=== PATIENT | female | born 1950 | race Caucasian/White ===

== ENCOUNTER 2017-04-24 08:50 | Emergency (ER) | payer MEDICARE, OTHER ==
[2017-04-24 09:18] VITALS: BP 139/65
--- NOTE | 2017-04-24 10:07 | UC ---
Respiratory Complaint HPI - HPI Summary HPI Summary: Pt c/o cough, wheezing, nasal congestion , SOB X 2 weeks. - History of Current Complaint Hx Obtained From: Patient ?: No Onset/Duration: Gradual Onset, Lasting Weeks - 2, Worse Since - onset Timing: Constant Severity Initially: Mild Severity Currently: Moderate Character: Cough: Productive, Sputum Description: - green Aggravating Factors: Deep Breaths, Recumbent Position Associated Signs And Symptoms: Positive: Wheezing, URI, Nasal Congestion, Sinus Discomfort <Shanita Reyes NP - Last Filed: 04/24/17 10:14> <Roselia Adler - Last Filed: 04/24/17 11:17> - History of Current Complaint Chief Complaint: UCRespiratory Stated Complaint: ACHY,COLD SYMP Time Seen by Provider: 04/24/17 09:29 - Allergies/Home Medications Allergies/Adverse Reactions: Allergies Allergy/AdvReac Type Severity Reaction Status Date / Time Chocolate Allergy Shortness Verified 04/24/17 09:18 of Breath Peanut-containing Drug Allergy Shortness Verified 04/24/17 09:18 Products of Breath Home Medications: Home Medications Bp Med Not Propranolol 1 tab PO DAILY 04/24/17 [History Confirmed 04/24/17] C-Pap Tx 1 unit INH QPM 04/24/17 [History Confirmed 04/24/17] PMH/Surg Hx/FS Hx/Imm Hx Previously Healthy: Yes Respiratory History: Asthma - Surgical History Surgical History: Yes Surgery Procedure, Year, and Place: B/L [facility], 2012, [facility]. Cystocele repair. tubal - Family History Known Family History: Positive: Hypertension, Renal Disease - Social History Occupation: Employed Full-time Lives: With Family Alcohol Use: None Substance Use Type: None Smoking Status (MU): Former Smoker Have You Smoked in the Last Year: No - Immunization History Vaccination Up to Date: No <Shanita Reyes NP - Last Filed: 04/24/17 10:14> Review of Systems Constitutional: Fatigue Skin: Negative Eyes: Negative ENT: Sinus Congestion, Sinus Pain/Tenderness Respiratory: Cough Cardiovascular: Negative Gastrointestinal: Negative Genitourinary: Negative Motor: Negative Neurovascular: Negative Musculoskeletal: Negative Neurological: Headache Psychological: Negative Is Patient Immunocompromised?: No All Other Systems Reviewed And Are Negative: Yes <Shanita Reyes NP - Last Filed: 04/24/17 10:14> Physical Exam Triage Information Reviewed: Yes Appearance: Ill-Appearing Vital Signs: Initial Vital Signs Temp 97.2 F 04/24/17 09:12 Pulse 82 04/24/17 09:12 Resp 18 04/24/17 09:12 BP 139/65 04/24/17 09:12 Pulse Ox 97 04/24/17 09:12 Vital Signs Reviewed: Yes Eye Exam: Normal ENT Exam: Other ENT: Positive: Nasal congestion, Sinus tenderness Dental Exam: Normal Dental: Positive: Other: - missing teeth Neck exam: Normal Respiratory Exam: Other Respiratory: Positive: Decreased breath sounds - bases bilateral, Wheezing Cardiovascular Exam: Normal Musculoskeletal Exam: Normal Neurological Exam: Normal Psychological Exam: Normal Skin Exam: Normal <Shanita Reyes NP - Last Filed: 04/24/17 10:14> Vital Signs: Initial Vital Signs Temp 97.2 F 04/24/17 09:12 Pulse 82 04/24/17 09:12 Resp 18 04/24/17 09:12 BP 139/65 04/24/17 09:12 Pulse Ox 97 04/24/17 09:12 <Roselia Adler - Last Filed: 04/24/17 11:17> UC Diagnostic Evaluation - Laboratory O2 Sat by Pulse Oximetry: 97 <Shanita Reyes NP - Last Filed: 04/24/17 10:14> Respiratory Course/Dx - Differential Dx/Diagnosis Differential Diagnosis/HQI/PQRI: Bronchitis, Sinusitis, Other - pneumonia Provider Diagnoses: bronchitis. sinusitis <Shanita Reyes NP - Last Filed: 04/24/17 10:14> Discharge <Shanita Reyes NP - Last Filed: 04/24/17 10:14> <Roselia Adler - Last Filed: 04/24/17 11:17> - Discharge Plan Condition: Stable Disposition: HOME Prescriptions: Albuterol HFA INHALER* [Ventolin HFA Inhaler*] 1 - 2 puff INH Q4H PRN #1 mdi PRN Reason: Sob/Wheezing Amoxicillin/Clavulanate TAB* [Augmentin TAB 500 mg*] 500 mg PO Q12H #20 tab Azithromycin TAB* [Zithromax TAB (Z-BRIGITTE) 250 mg #6 tabs] 2 tab PO .TODAY, THEN 1 DAILY #1 brigitte Benzonatate CAP* [Tessalon 100 MG CAP*] 100 mg PO Q8H PRN #30 cap PRN Reason: Cough methylPREDNISolone TAB* [Medrol TAB*] 4 - 8 mg PO .SEE BRIGITTE #1 brigitte Patient Education Materials: Acute Bronchitis (ED), Wheezing (ED) Referrals: Rosa Carcamo PA [Primary Care Provider] - If Needed Attestation Statement User Type: Provider - I was available for consult. This patient was seen by the IDANIA. The patient was not presented to, seen by, or examined by me. -Leeann <Roselia Adler - Last Filed: 04/24/17 11:17>
== END 2017-04-24 10:19 | disposition home or self-care (01) ==
LOC: UCCORT 08:50
DX: J40 Bronchitis, not specified as acute or chronic (principal); J32.9 Chronic sinusitis, unspecified; Z87.891 Personal history of nicotine dependence
CPT/HCPCS: 99212; G0463

== ENCOUNTER 2017-05-09 12:27 | Emergency (ER) | payer MEDICARE, OTHER ==
[2017-05-09 12:47] VITALS: BP 111/65
[2017-05-09] MEDS ORDERED: Albuterol/Ipratropium NEB.SOL* Albuterol 2.5 MG/Ipratropium 0.5 MG 3 ML INH ONE (12:51)
--- NOTE | 2017-05-09 12:57 | UC ---
Respiratory Complaint HPI - HPI Summary HPI Summary: Returning Bronchospastic Cough, no fevers MDI does not seem to be working that well sx returned after stopping prednisone - History of Current Complaint Chief Complaint: UCRespiratory Stated Complaint: COUGH,CHEST DEE Time Seen by Provider: 05/09/17 12:49 Hx Obtained From: Patient ?: No Onset/Duration: Gradual Onset, Resolved - with prednisone, Worse Since - past 3 days Timing: Constant Severity Initially: Moderate Severity Currently: Moderate Character: Cough: Nonproductive Alleviating Factors: Bronchodilator, Other - Prednisone Associated Signs And Symptoms: Positive: Wheezing - Bronchospastic Cough - Allergies/Home Medications Allergies/Adverse Reactions: Allergies Allergy/AdvReac Type Severity Reaction Status Date / Time Chocolate Allergy Shortness Verified 05/09/17 12:36 of Breath Peanut-containing Drug Allergy Shortness Verified 05/09/17 12:36 Products of Breath Home Medications: Home Medications Lansoprazole [Prevacid] 30 mg PO DAILY 05/09/17 [History Confirmed 05/09/17] Solifenacin Succinate [Vesicare] 5 mg PO DAILY 05/09/17 [History Confirmed 05/09] Spironolactone (NF) [Spironolactone 50 MG (NF)] 50 mg PO DAILY 05/09/17 [ History Confirmed 05/09/17] PMH/Surg Hx/FS Hx/Imm Hx Previously Healthy: No Respiratory History: Asthma GI/ History: Gastroesophageal Reflux Psychological History: Depression - Surgical History Surgical History: Yes Surgery Procedure, Year, and Place: B/L [facility], 2013, [facility] Cystocele repair. tubal - Family History Known Family History: Positive: Hypertension, Renal Disease - Social History Occupation: Retired Lives: With Family Alcohol Use: None Substance Use Type: None Smoking Status (MU): Former Smoker Have You Smoked in the Last Year: No When Did the Patient Quit Smoking/Using Tobacco: 35 YRS AGO - Immunization History Most Recent Influenza Vaccination: FALL 2016 Vaccination Up to Date: No Review of Systems Constitutional: Negative Skin: Negative Eyes: Negative ENT: Negative Respiratory: Cough Cardiovascular: Negative Gastrointestinal: Negative Genitourinary: Negative Motor: Negative Neurovascular: Negative Musculoskeletal: Negative Neurological: Negative Psychological: Negative Is Patient Immunocompromised?: No All Other Systems Reviewed And Are Negative: Yes Physical Exam Triage Information Reviewed: Yes Appearance: Well-Appearing, No Pain Distress, Well-Nourished Vital Signs: Initial Vital Signs Temp 98.6 F 05/09/17 12:40 Pulse 80 05/09/17 12:40 Resp 26 05/09/17 12:40 BP 111/65 05/09/17 12:40 Pulse Ox 97 05/09/17 12:40 Vital Signs Reviewed: Yes Eye Exam: Normal Eyes: Positive: Conjunctiva Clear ENT Exam: Normal ENT: Positive: Normal ENT inspection, Hearing grossly normal, Pharynx normal, TMs normal, Uvula midline. Negative: Nasal congestion, Nasal drainage, Tonsillar swelling, Trismus, Muffled voice, Hoarse voice, Dental tenderness, Sinus tenderness Dental Exam: Normal Neck exam: Normal Neck: Positive: Supple, Nontender, No Lymphadenopathy Respiratory Exam: Normal Respiratory: Positive: Chest non-tender, No respiratory distress, No accessory muscle use, Decreased breath sounds Cardiovascular Exam: Normal Cardiovascular: Positive: RRR, No Murmur, Pulses Normal, Brisk Capillary Refill Musculoskeletal Exam: Normal Musculoskeletal: Positive: Strength Intact, ROM Intact, No Edema Neurological Exam: Normal Neurological: Positive: Alert, Muscle Tone Normal Psychological Exam: Normal Skin Exam: Normal UC Diagnostic Evaluation - Laboratory O2 Sat by Pulse Oximetry: 97 - Radiology Xray Interpretation: No Acute Changes Radiology Interpretation Completed By: ED Physician, Radiologist Re-Evaluation - Re-Evaluation First Eval Change: Improved - Increase air movement after neb-some coughing remains but feeling better Respiratory Course/Dx - Course Course Of Treatment: Prednisone, albuterol Neb and MDI follow with pcp - Differential Dx/Diagnosis Provider Diagnoses: Acute exacerbation of Bronchospasm, Chronic asthma Discharge - Discharge Plan Condition: Stable Disposition: HOME Prescriptions: Albuterol 2.5MG/3ML (0.083%)* [Ventolin 2.5 MG/3 ML NEB.BERNARDINO*] 2.5 mg INH Q4H PRN #1 box PRN Reason: cough/wheeze/sob Albuterol HFA INHALER* [Ventolin HFA Inhaler*] 2 puff INH Q4H PRN #1 mdi PRN Reason: SOB/COUGH/Wheeze predniSONE TAB* [Deltasone TAB*] 20 mg PO DAILY #15 tab Meds/Orders/Equipment: Home Care: Equipment Location: None Selected Home Care: Equipment Facility: [facility], Location: PHARMACY PRESCRIPTIONS Patient Education Materials: How to Use a Metered-Dose Inhaler (ED), How to Use a Nebulizer (ED), Bronchospasm (ED), How to Use a Metered-Dose Inhaler and a Spacer (ED) Referrals: Rosa Carcamo PA [Physician Loaders] - 1 Week
--- NOTE | 2017-05-09 13:11 | RAD ---
INDICATION: Cough x2 weeks COMPARISON: None TECHNIQUE: PA and lateral views of the chest were obtained. FINDINGS: The heart and mediastinum are normal in size and contour. The lungs are grossly clear. There is no evidence of large pleural effusion. Visualized bones are normal for the patient's age. There is no radiographic evidence of free air beneath the diaphragm IMPRESSION: No radiographic evidence of acute cardiopulmonary disease.
[2017-05-09] MEDS ORDERED: predniSONE TAB* 20 MG PO ONE (13:30)
== END 2017-05-09 13:48 | disposition home or self-care (01) ==
LOC: UCCORT 12:27
DX: J45.909 Unspecified asthma, uncomplicated (principal); K21.9 Gastro-esophageal reflux disease without esophagitis; Z91.010 Allergy to peanuts; Z91.018 Allergy to other foods; Z79.899 Other long term (current) drug therapy
CPT/HCPCS: 71020; 99212; A9270-GY; G0463; J7512

== ENCOUNTER 2017-06-08 13:59 | Emergency (ER) | payer MEDICARE, OTHER ==
--- NOTE | 2017-06-08 14:11 | ED ---
Neurological HPI - HPI Summary HPI Summary: 66 yr old female with the complaint of slurred speech. She presents here with last well known time prior to going to bed on Saturday night. She states all day and Saturday and today she has had trouble speaking according to other people. She also states that picking up things with her right hand not very well the past couple of days. She complains of mild left frontal headache. No other complaints. - History of Current Complaint Stated Complaint: SLURRED SPEECH Time Seen by Provider: 06/08/17 14:01 - Allergy/Home Medications Allergies/Adverse Reactions: Allergies Allergy/AdvReac Type Severity Reaction Status Date / Time Chocolate Allergy Shortness Verified 06/08/17 14:06 of Breath Peanut-containing Drug Allergy Shortness Verified 06/08/17 14:06 Products of Breath PMH/Surg Hx/FS Hx/Imm Hx Respiratory History: Reports: Hx Asthma - Surgical History Surgery Procedure, Year, and Place: B/L [facility], [facility], [facility] Cystocele repair. tubal Infectious Disease History: Denies: Hx Clostridium Difficile, Hx Hepatitis, Hx Human Immunodeficiency Virus (HIV), Hx of Known/Suspected MRSA, Hx Shingles, Hx Tuberculosis, Hx Known/ Suspected VRE, Hx Known/Suspected VRSA, History Other Infectious Disease - Family History Known Family History: Positive: Hypertension, Renal Disease - Social History Alcohol Use: None Substance Use Type: Reports: None Smoking Status (MU): Former Smoker Have You Smoked in the Last Year: No Review of Systems Constitutional: Negative Positive: Headache, Slurred Speech All Other Systems Reviewed And Are Negative: Yes Physical Exam Triage Information Reviewed: Yes Vital Signs Reviewed: Yes Appearance: Positive: Well-Appearing, No Pain Distress Skin: Positive: Warm Head/Face: Positive: Normal Head/Face Inspection Eyes: Positive: EOMI ENT: Positive: Normal ENT inspection Neck: Positive: Supple, Nontender Respiratory/Lung Sounds: Positive: Clear to Auscultation, Breath Sounds Present Cardiovascular: Positive: RRR. Negative: Murmur Abdomen Description: Positive: Nontender Musculoskeletal: Positive: Strength/ROM Intact Neurological: Positive: Sensory/Motor Intact - sensory grossly intact, and no pronator drift or focal weakness. She reports her right hand is not well coordinated and trouble picking up things, Alert, Oriented to Person Place, Time , CN Intact II-III, Normal Gait, Slurred Speech, Other - difficulty speaking well. Psychiatric: Positive: Normal - Cristian Coma Scale Best Eye Response: 4 - Spontaneous Best Motor Response: 6 - Obeys Commands Best Verbal Response: 5 - Oriented Coma Scale Total: 15 Course/Dx - Course Course Of Treatment: Case DW with [facility]. Stroke center accepted patientsalinas she is to go to the ER with Dr Espinosa the accepting physician. The patient requested to go to the Stroke center and this is most appropriate even though she has had symptoms for over two days. This could be a bleed, tumor or other PEDIATRIC ONCOLOGY NURSE lesion that would require neurosurgery, neurology eval and extensive work up best done at a Stroke center. - Diagnoses Provider Diagnoses: Stroke Discharge - Discharge Plan Condition: Good Disposition: TRANS HIGHER LVL OF CARE FAC Referrals: Leigh Desai PA [Primary Care Provider] -
[2017-06-08 14:13] VITALS: BP 138/83
== END 2017-06-08 14:30 | disposition short-term general hospital (02) ==
LOC: UCCORT 13:59
DX: I63.9 Cerebral infarction, unspecified (principal); Z91.010 Allergy to peanuts; J45.909 Unspecified asthma, uncomplicated; Z87.891 Personal history of nicotine dependence
CPT/HCPCS: 99213; G0463

== ENCOUNTER 2017-08-02 17:51 | Emergency (ER) | payer MEDICARE, OTHER ==
--- OUTSIDE RECORDS SUMMARY | 2017-08-02 18:15 | XMS REPORT ---
:1950 External Reference #:[id number] Author Organization [facility] [employer] [facility] Address [address] [place] [address] Phone [phone] Care Team Providers Name Role Phone Leigh Desai R.P.A. 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 Primary Care Physician Unavailable Payers Type Date Identification Numbers Payment Provider Subscriber Commercial Policy Number: [id number] [employer] Medicare Advantage Michelle Klein Group Number: [id number] [address] PayID: [id number] [place] [address] Medigap Part B Effective: 2015 Policy Number: [id number] Medicare Michelle Klein Expires: 2015 PayID: [id number] [address] [place] [address] Medigap Part B Effective: 2010 Policy Number: [id number] [facility] Michelle Klein Expires: 2012 PayID: [id number] [address] [address] [place] [address] Medigap Part B Effective: 2013 Policy Number: [id number] Bhardwajkevyn Klein Expires: 2015 PayID: [id number] [address] [place] [address] Problems Date Description Provider Status Onset: 08/30/2011 Kidney stone Attila Snyder M.D. Active Onset: 08/30/2011 Incomplete emptying of bladder Attila Snyder M.D. Active Onset: 02/11/2015 Type 2 diabetes mellitus Active Family History Date Family Member(s) Problem(s) Comments Father Heart Disease Mother Bladder Cancer 2010. Social History Type Date Description Comments Marital Status Patient is single Occupation unknown Cigarette Use Former Cigarette Smoker Cigars Never Smoked Cigars Pipe Never Smoked A Pipe ETOH Use Patient denies alcohol use Daily Caffeine Does Not Consume Caffeine Allergies, Adverse Reactions, Alerts Date Description Reaction Status Severity Comments 12/01/2010 Chocolate respiratory active 12/01/2010 Peanut Oil respiratory active Medications Medication Date Status Form Strength Qnty SIG Indications Ordering Provider Vesicare 04/26/ Active Tablets 10mg 30tab 1 by mouth Claudio, 2015 s every day Aiken M, M.DCharo Singulair / Active Tablets 10mg daily Unknown 0000 Prevacid / Active Capsules 30mg 1 po qd Unknown [address] DR Propranolol HCL / Active Tablets 40mg 2 po qd Unknown 0000 Zoloft / Active Tablets 25mg 14tab 1 po qd Unknown 0000 s Cyclobenzaprine / Active Tablets 10mg tid Unknown HCL 0000 Cymbalta / Active Caps DR 30mg Unknown 0000 Part Meloxicam / Active Tablets 7.5mg daily Unknown 0000 Metformin HCL / Active Tablets 500mg take 1 Unknown 0000 tablet twice a day Pravastatin / Active Tablets 40mg take 1 Unknown Sodium 0000 tablet by mouth at bedtime Propranolol HCL / Active Tablets 80mg Unknown 0000 Niacin ER / Active Tablets ER 500mg take 1 Unknown (Antihyperlipidem 0000 tablet at ) bedtime for 4 weeks then 2 tablets at bedtime Vitamin D3 / Active Tablets 1000Unit take 1 Unknown 0000 tablet once daily Ciprofloxacin HCL 04/11/ Hx Tablets 500mg 6tabs 1 by mouth Claudio, 2015 - twice a Aiken M, 04/14/ day for 3 M.D. 2015 days Gavilyte-G / Hx Solution 236gm Drink Half Unknown 0000 - Rec The 07/21/ Evening 2018 Before And Half The Morning Of Procedure ( 1 Cu Ra Laxative / Hx Tablets DR 5mg Take 4 Unknown 0000 - Tabs At 07/22/ 8PM Day 2018 Before Procedure Ra Magnesium / Hx Solution 1.745GM/3 use as Unknown Citrate 0000 - 0ML directed 2017 Vital Signs Date Vital Result Comment 07/22/2017 Height 62 inches 5'2" Weight 180.00 lb Weight in kg's 81.648 BMI (Body Mass Index) 32.9 kg/m2 BP Systolic 114 mmHg BP Diastolic 82 mmHg Heart Rate 78 /min 07/05/2016 Post Void Residual ml 5 Indication:, Ultrasound aishwarya 03/29/2016 Height 62 inches 5'2" Weight 176.00 lb Weight in kg's 79.834 BMI (Body Mass Index) 32.2 kg/m2 BP Systolic 144 mmHg right wrist audio BP Diastolic 89 mmHg right wrist audio Heart Rate 85 /min Body Temperature 97.8 F 06/07/2014 Height 62 inches 5'2" Weight 200.00 lb Weight in kg's 90.720 BMI (Body Mass Index) 36.6 kg/m2 BP Systolic 137 mmHg right wrist audio BP Diastolic 81 mmHg right wrist audio Heart Rate 71 /min Body Temperature 98.6 F 05/27/2012 Height 62 inches 5'2" Weight 197.00 lb Weight in kg's 89.359 BMI (Body Mass Index) 36.0 kg/m2 BP Systolic 125 mmHg left BP Diastolic 75 mmHg left Heart Rate 65 /min Body Temperature 96.4 F 05/29/2011 BP Systolic 133 mmHg left wrist BP Diastolic 77 mmHg left wrist Heart Rate 77 /min Body Temperature 97.1 F 12/01/2010 BP Systolic 125 mmHg right wrist BP Diastolic 74 mmHg right wrist Heart Rate 69 /min Body Temperature 97.4 F Results Test Date Test Result H/L Range Note 230 Ua Routine 07/05/2016 Ua Glucose Negative Ua Protein 1+ Ua Nitrite Negative Ua Leuko Negative Ua Blood Negative Ua Color yellow Ua Ketones Negative Ua Clarity clear Ua Specifici [place] 1.020 1.003-1.030 Ua PH 5.0 5.0-7.5 Ua Bilirubin Negative Ua Urobilinogen 0.2 E.U./dL 0.0-1.0 230 Ua Routine 04/26/2016 Ua Glucose Negative Ua Protein 2+ Ua Nitrite Negative Ua Leuko Negative Ua Blood Negative Ua Color yellow Ua Ketones Negative Ua Clarity clear Ua Specifici [place] >=1.030 1.003-1.030 Ua PH 6.0 5.0-7.5 Ua Bilirubin Negative Ua Urobilinogen 0.2 E.U./dL 0.0-1.0 #Ua Routine 05/27/2012 Ua Glucose Negative Ua Protein 2+ Ua Nitrite Negative Ua Leuko Negative Ua Blood Negative Ua Color Not Entered Ua Ketones Negative Ua Clarity Not Entered Ua Specific [place] 1.025 Ua PH 5.5 Ua Bilirubin Negative Ua Urobilinogen 0.2 E.U./dL #Ua Routine 05/29/2011 Ua Glucose Negative Ua Protein 1+ Ua Nitrite Negative Ua Leuko Trace Ua Blood Negative Ua Color Not Entered Ua Ketones Negative Ua Clarity Not Entered Ua Specific [place] 1.020 Ua PH 7.0 Ua Bilirubin Negative Ua Urobilinogen 0.2 E.U./dL #Ua Routine 12/01/2010 Ua Glucose Negative Ua Prot/Creat 150 mg/gAbnormal Ua Protein Low Ua Nitrite Negative Ua Leuko Negative Ua Blood Negative Ua Color Not Entered Ua Ketones Negative Ua Clarity Not Entered Ua Specific [place] >=1.030 Ua PH 5.5 Ua Creatinine 300 mg/dL Procedures Date CPT Code Description Status 07/22/2017 85294 Bladder Scan, Post Voiding Residual Urine Completed 04/16/2016 17316 Ultrasound Retro Renal Real Time With Image Limited Completed [facility] 04/11/2016 52957 Urodynamics, Voiding Pressure Studies Intra Abdominal Completed [facility] 04/11/2016 20201 Urodynamics, Electromyography Studies EMG Of Anal Or Completed [facility] 04/11/2016 04042 Urodynamics, Complex Uroflowmetry Eg Calibrated Completed [facility] 04/11/2016 41404 Complex Cystometrogram, With Voiding Pressure Studies Completed [facility] 03/29/2016 56361 Bladder Scan, Post Voiding Residual Urine Completed 02/11/2015 34453 Bladder Scan, Post Voiding Residual Urine Completed 01/31/2015 15625 Ultrasound Retro Renal Real Time With Image Limited Completed [facility] 06/07/2014 87801 Ultrasound Retro Renal Real Time With Image Limited Completed [facility] 05/27/2012 17371 Ultrasound Retro Renal Real Time With Image Completed 05/29/2011 88219 Bladder Scan, Post Voiding Residual Urine Completed 05/28/2011 20376 Ultrasound Retro Renal Real Time With Image Limited Completed [facility] 11/27/2010 68248 Ultrasound Retro Renal Real Time With Image Limited Completed [facility] Encounters Type Date Location Provider CPT E/M Dx Office Visit 07/05/2016 1:15p Paolo/Subha Le NP/[place] 19706 N39.41 Urology R35.0 Office Visit 04/26/2016 1:50p [facility] Attila Snyder, 52640 N39.41 Val R35.0 Office Visit 03/29/2016 9:00a Paolo/[facility]il.M.[facility] Claudio Attila Khalil, 02268 N20.0 M.D. R35.1 N39.41 Office Visit 02/11/2015 10:00a Paolo/[facility] Attila Khalil, 74699 R35.1 M.D. R35.0 N20.0 R39.14 Office Visit 06/07/2014 12:20p Paolo/[facility].M.[facility] Attila Khalil, 97424 592.0 M.D. 788.43 788.41 724.5 Office Visit 05/27/2012 8:40a Paolo/[facility] Claudio Aiken Remi, 04680 592.0 M.D. Office Visit 05/29/2011 10:10a Paolo/Basil.MElis [facility] Attila Snyder, 78974 592.0 M.D. 788.21 Office Visit 12/01/2010 9:00a Paolo/Basil.MCharoPCharo Urology Jeremías, Subha, [employer] [address] 592.0 Plan of Care 07/22/2017 - Joe Menendez, P.A.R39.15 Urgency of urinationComments: Currently symptoms are baseline. Call for his reviewed. We will see her on a when necessary basis.
--- OUTSIDE RECORDS SUMMARY | 2017-08-02 18:16 | XMS REPORT ---
:1950 External Reference #:[id number] Author Organization [facility] 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 Leigh Desai RPAC Primary Care Physician Unavailable Payers Type Date Identification Numbers Payment Provider Subscriber Commercial Policy Number: [id number] [employer] Medicare Michelle Klein PayID: [id number] [address] [place] [address] Medigap Part B Policy Number: [id number] [employer] Michelle Klein PayID: [id number] [address] [place] [address] Problems Date Description Provider Status Onset: 12/27/2014 Essential hypertension Rosa Carcamo PA-C Active Onset: 12/27/2014 Depressive disorder Rosa Carcamo PA-C Active Onset: 12/27/2014 Migraine Rosa Carcamo PA-C Active Onset: 12/27/2014 Kidney stone Rosa Carcamo PA-C Active Note: 92% calcium oxalate 2008 Onset: 12/27/2014 Gastroesophageal reflux disease Rosa Carcamo PA-C Active Onset: 12/27/2014 Asthma without status asthmaticus Rosa Carcamo PA-C Active Onset: 12/27/2014 Degenerative joint disease Rosa Carcamo PA-C Active involving multiple joints Note: spine Onset: 12/27/2014 Obstructive sleep apnea syndrome Rosa Carcamo PA-C Active Note: APAP Onset: 12/27/2014 Hyperlipidemia Rosa Carcamo PA-C Active Onset: 12/27/2014 Obesity Rosa Carcamo PA-C Active Onset: 04/28/2015 Insomnia Rosa Carcamo PA-C Active Onset: 03/28/2016 Screening for malignant neoplasm of Gaston Campos MD Active colon Onset: 07/02/2016 Vitamin D deficiency Rosa Carcamo PA-C Active Onset: 06/01/2017 [facility] Onset: 06/10/2017 Cerebrovascular accident [facility] Active Note: small vessel/ischemic/(R) centrum ovale, 05/2017 Onset: 07/02/2017 Cerebrovascular disease Verna Jade M.D. Active Onset: 07/02/2017 Taking medication Verna Jade M.D. Active Onset: 07/02/2017 Hypothyroidism Verna Jade M.D. Active Onset: 07/02/2017 Dysphagia as a late effect of Verna Jade M.D. Active cerebrovascular accident Onset: 07/02/2017 Dysarthria-clumsy hand syndrome Verna Jade M.D. Active Onset: 07/02/2017 Encounter for screening for Verna Jade M.D. Active nutritional disorder Onset: 07/15/2017 Hypokalemia Verna Jade M.D. Active Onset: 12/27/2014 Type 2 diabetes mellitus Rosa Carcamo PA-C Resolved Resolved: 05/30/2017 Note: since 2013; Jun 2016 A1C 5.4 microalbumin+ August 2014 Due for Diabetic eye exam which is covered by [employer] Onset: 12/27/2014 Female stress incontinence Rosa Carcamo PA-C Resolved Resolved: 06/01/2017 Note: cecile 2008 Family History Date Family Member(s) Problem(s) Comments Father Diabetes Father CAD Mother 83 Onset: (age 57 Years) Mother Colon Cancer malignant tumor Mother Kidney Stones Mother Malignant tumor esophagus Mother Malignant tumor urinary bladder Mother Renal Failure Syndrome First Daughter Sleep apnea First Daughter Fibromyalgia First Brother Sleep apnea First Brother Fibromyalgia First Sister Sleep apnea First Sister Fibromyalgia Social History Type Date Description Comments Marital Status Single Lives With Alone Diet Patient follows no dietary restrictions 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, 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 Work Status Unemployed Abuse Childhood Cigarette Use Quit 1974 ETOH Use Denies alcohol use Recreational Drug Use Denies Drug Use Daily Caffeine Does Not Consume Caffeine Daily Caffeine Patient consumes minimal amounts of caffeine Enjoy Exercising Does not enjoy exercising Tattoo/Piercing Negative For Tattoo Tattoo/Piercing Pierced ears Smoke Alarms Yes Currently Active Patient is currently not sexually active Contraceptive Methods Current methods include tubal ligation Age 1st [place] 20 Years Old # Partners in a Lifetime 2 STD's No STD History Allergies, Adverse Reactions, Alerts Date Description Reaction Status Severity Comments 12/28/2014 Amitriptyline active 02/14/2010 Peanut Allergenic active Extract 12/28/2014 Lyrica active 12/28/2014 Savella active 03/05/2016 Pravastatin active Made her talk funny 07/09/2016 Niaspan flushing, pruritus active Moderate Medications Medication Date Status Form Strength Qnty SIG Indications Ordering Provider Bryce 10 07/15/ Active Tablets ER 10Meq 90tab 1 by mouth E87.6 Andras 2018 s every day Val Jade Speech 07/08/ Active Dg. CVA , Andras Therapy/Swallowin 2018 dysarthria aniya Jade M.D. dysphagia Potassium 07/07/ Active Tablets ER 20Meq 3tabs take 1 Andras Chloride ER 2018 tablet Kalie, daily for M.D. 3 days Vascepa 07/02/ Active Capsules 0.5gm 180ca 1 capsule E78.5 Andras 2018 ps by mouth Kalie, twice a M.D. day Nifedipine ER 06/11/ Active Tablets ER 60mg 1 tab by R20.2 James 2018 24HR mouth Fagan, every M.D. 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 day as needed Cymbalta 04/28/ Active Caps DR 60mg 90cap 1 by mouth F32.8 Emi 2014 Part s daily MD Dung Singulair / Active Tablets 10mg 90tab 1 by mouth Emi 0000 s every day MD Dung Prilosec OTC / Active Tablets DR 20mg 2 by mouth Unknown 0000 every day Vesicare / Active Tablets 10mg 90tab 1 tab by James 0000 s mouth Fagan, every day M.D. Albuterol Sulfate / Active Nebulizer (2.5mg/3M one unit Unknown 0000 L) 0.083% dose via nebulizer every 4 hours as needed Clopidogrel 06/10/ Hx Tablets 75mg 1 by mouth Unknown Bisulfate 2018 - every day, 07/01/ for 3 wks 2018 Nifedipine ER 05/30/ Hx Tablets ER 30mg 30tab 1 tab by R20.2 James 2018 - 24HR s mouth Fagan, 06/11/ every M.D. 2018 night Spironolactone 07/09/ Hx Tablets 25mg 90tab 1 by mouth I10 James 2016 - s every day Fagan, 05/30/ M.D. 2018 Niacin ER 07/09/ Hx Tablets ER 1000mg 90tab 2 by mouth E78.5 James (Antihyperlipidem 2016 - s every Fagan, ic) 07/09/ night at M.D. 2017 bedtime Gemfibrozil 07/09/ Hx Tablets 600mg 180ta take 1 E78.5 James 2017 - bs tablets by Fagan, 01/16/ mouth M.D. 2016 twice daily Vitamin D3 Super 07/09/ Hx Tablets 2000Unit 90tab 1 by mouth E55.9 James Strength 2017 - s every day Fagan, 01/16/ M.D. 2016 Golytely 03/28/ Hx Solution 236gm 4000m drink half Z12.11 2015 Rec l the MD Andres evening before and half the morning of the procedure (1 cup every 10') Dulcolax 03/28/ Hx Tablets DR 5mg 4tabs 4 tablets Z12.2015 taken arnoldo Campos MD 8pm the day before the procedure Magnesium Citrate 03/28/ Hx Solution 1.745GM/3 296ml Z12.11 2015 0ML MD Andres Niaspan 03/14/ Hx Tablets ER 500mg 180ta 1 tabs E78.5 Everett Chau 2016 - bs (500 mg) [facility] 07/09/ by mouth 2017 every night at bedtime x 4 weeks, then 2 tablets by mouth (1000 mg) every night at bedtime Vitamin D 03/14/ Hx Tablets 1000Unit 90tab 1 by mouth E55.9 Everett Chau (Cholecalciferol) 2015 - s every day [facility] 2016 K-Tab 03/07/ Hx Tablets ER 20Meq 90tab 1 PO daily Everett Chau 2015 s [facility] 2016 Suprep Bowel Prep 05/25/ Hx Solution 2.8L drink 16 Z12.11 Junito 2016 oz x1 Vatra, dose, then M.D. drink 32 oz water over 1h evening before procedure; repeat regimen at least 1h before procedure Omeprazole 05/25/ Hx Capsules 40mg 90cap 1 by mouth K21.[address] de la o daily Val Alcantara Golytely 04/28/ Hx Solution 236gm 1jug drink 1/2 Z12.11 Junito 2015 - Rec the jug Maricruz, 05/25/ the day M.D. 2016 before the procedure a/d, then the other half the morning of the procedure a/d Vitamin D 09/06/ Hx Capsules 400Unit 60cap 1 Tab po 733.00 Balwinder 2009 Umair s qd [place], M.D. 2015 Bactrim 09/06/ Hx Tablets 400-80mg 20tab 1 tab po 599.0 Balwinder 2009 bid for [place], 12/27/ days M.D. 2015 Prevacid / Hx Capsules 30mg 90cap 1 by mouth Junito Umair de la o every day Maricruz M.DCharo 2016 Ramipril / Hx Capsules 5mg 30cap 1 po qd Balwinder de la o [place], M.D. 2014 Zoloft / Hx Tablets 50mg 1 po qd Balwinder Worley - [place], M.D. 2015 Vitamin-B12 00/00/ Hx Tablets 1 po qd Balwinder Complex 0000 - Chase, 12/27/ M.D. 2014 Aspirin /00/ Hx Tablets DR 81mg 1 by mouth Unknown 0000 - every day 2014 Albuterol Sulfate / Hx Nebulizer 2 puffs Unknown 0000 - every 4 04/24/ hours prn 2017 Calcium 500 +D 00/00/ Hx Tablets 500-400mg one tab by Unknown 0000 - -Unit mouth 12/27/ twice a 2014 day Cyclobenzaprine / Hx Tablets 10mg 270ta 1 by mouth Junito HCL 0000 - bs every 8 h Vatra, 04/28/ as needed M.D. 2014 for muscle pain Cymbalta / Hx Caps DR 30mg 1 by mouth Unknown 0000 - Part every day 2014 Hydroxyzine HCL 00/ Hx Tablets 25mg 180ta 1-2 tabs Junito 0000 - bs by mouth Vatra, 04/24/ every M.D. 2016 night as needed insomnia Meloxicam 00/ Hx Tablets 7.5mg 1 by mouth Unknown 0000 - every day 04/24/ food 2016 Metformin HCL 00/00/ Hx Tablets 500mg 1 by mouth Unknown 0000 - every day 2015 Pravastatin /00/ Hx Tablets 40mg 90tab 1 by mouth Junito Sodium 0000 - s every Vat, 03/05/ night M.D. 2015 Immunizations CPT Code Status Date Vaccine Lot # [id number] Given 01/16/2017 Influenza Virus Vaccine, Quadrivalent, Slit Virus, Im Use [id number] Given 03/05/2016 Pneumococcal Conjugate Vaccine 13 Valent For [id number] Intramuscular Use 06365 Given 03/05/2016 Influenza Virus Vaccine Split Virus Use For [id number] Individual 3Yr Older [id number] Given 04/28/2015 Influenza Vaccine (Fluzone) Age 3 And Older [id number] Given 09/18/2012 Tdap injection 59946 Given 04/21/2008 Pneumovax Injection 24671 Given 12/11/2002 Tetnus Injection 13989 Given 05/13/1997 Pneumovax Injection 13895 Given 05/13/1992 Tetnus Injection Vital Signs Date Vital Result Comment 07/15/2017 BP Systolic 112 mmHg BP Diastolic 70 mmHg Heart Rate 79 /min Respiratory Rate 14 /min Height 62 inches 5'2" Weight 183.12 lb BMI (Body Mass Index) 33.5 kg/m2 BSA (Body Surface Area) 1.84 m2 Upatoi body weight in kilograms 50 O2 % BldC Oximetry 95 % 07/02/2017 BP Systolic 123 mmHg with her cuff was 179/101 BP Diastolic 61 mmHg with her cuff was 179/101 Heart Rate 99 /min Respiratory Rate 14 /min Height 62 inches 5'2" Weight 180.38 lb BMI (Body Mass Index) 33.0 kg/m2 BSA (Body Surface Area) 1.83 m2 [place] body weight in kilograms 50 O2 % BldC Oximetry 96 % 05/30/2017 BP Systolic Sitting Right Arm 122 mmHg BP Diastolic Sitting Right Arm 80 mmHg Heart Rate 73 /min Height 62 inches 5'2" Weight 184.00 lb BMI (Body Mass Index) 33.7 kg/m2 BSA (Body Surface Area) 1.85 m2 Upatoi body weight in kilograms 50 O2 % BldC Oximetry 98 % ra 01/16/2017 BP Systolic 131 mmHg BP Diastolic 62 mmHg Heart Rate 91 /min Respiratory Rate 14 /min Height 62 inches 5'2" Weight 177.50 lb BMI (Body Mass Index) 32.5 kg/m2 BSA (Body Surface Area) 1.82 m2 Upatoi body weight in kilograms 50 O2 % BldC Oximetry 98 % 07/09/2016 BP Systolic 146 mmHg BP Diastolic 90 mmHg Heart Rate 82 /min Height 62 inches 5'2" Weight 175.00 lb BMI (Body Mass Index) 32.0 kg/m2 BSA (Body Surface Area) 1.81 m2 03/28/2016 BP Systolic Sitting Left Arm 124 mmHg BP Diastolic Sitting Left Arm 84 mmHg Heart Rate 83 /min Respiratory Rate 16 /min Height 62 inches 5'2" Weight 177.00 lb BMI (Body Mass Index) 32.4 kg/m2 BSA (Body Surface Area) 1.81 m2 03/14/2016 BP Systolic 136 mmHg BP Diastolic 85 mmHg Heart Rate 80 /min Height 62 inches 5'2" Weight 177.00 lb BMI (Body Mass Index) 32.4 kg/m2 BSA (Body Surface Area) 1.81 m2 03/05/2016 BP Systolic 141 mmHg BP Diastolic 78 mmHg Heart Rate 79 /min Height 62 inches 5'2" Weight 177.00 lb BMI (Body Mass Index) 32.4 kg/m2 BSA (Body Surface Area) 1.81 m2 05/25/2015 BP Systolic 132 mmHg BP Diastolic 77 mmHg Heart Rate 69 /min Height 62 inches 5'2" Weight 192.00 lb BMI (Body Mass Index) 35.1 kg/m2 BSA (Body Surface Area) 1.88 m2 04/28/2015 BP Systolic 114 mmHg BP Diastolic 71 mmHg Heart Rate 60 /min Height 62 inches 5'2" Weight 189.00 lb BMI (Body Mass Index) 34.6 kg/m2 BSA (Body Surface Area) 1.87 m2 12/28/2014 BP Systolic Sitting Right Arm 138 mmHg BP Diastolic Sitting Right Arm 72 mmHg Respiratory Rate 20 /min Height 62 inches 5'2" Weight 200.00 lb BMI (Body Mass Index) 36.6 kg/m2 BSA (Body Surface Area) 1.91 m2 09/20/2009 Heart Rate 89 /min Respiratory Rate 18 /min Weight 188.00 lb Last Menstrual Period 0 LMP 200009/06/2009 Heart Rate 67 /min Respiratory Rate 20 /min Weight 185.00 lb Last Menstrual Period 0 LMP 200008/30/2009 Heart Rate 87 /min Respiratory Rate 20 /min Weight 183.00 lb Last Menstrual Period 0 Results Test Date Test Result H/L Range Note Homocyst(E)Ine, P/S 07/04/2017 Homocyst(e)ine, P/S 10.5 umol/L 0.0-15.0 1, 2 CBS W/Automated Diff 07/04/2017 White Blood Count 7.7 K/uL 3.1-10.7 1 Red Blood Count 4.52 M/uL 3.90-5.40 1 Hemoglobin 13.0 gm/dL 11.6-15.8 1 Hematocrit 39.2 % 36.0-46.1 1 Mean Cell Volume 86.7 fl 80.9-99.0 1 Mean Corpuscular HGB 28.8 pg 25.9-32.7 1 Mean Corpuscular HGB Conc 33.2 g/dL 30.8-34.3 1 Platelet Count 241 K/uL 155-360 1 Red Cell Distri Width SD 45.1 fl 3-47 1 Red Cell Distri Width %CV 14.5 % High 11.7-14.4 1 Mean Platelet Volume 12.7 fL High 8.9-12.4 1 Neut% 71.8 % 40.4-72.8 1 Lymph % 20.6 % 20.0-42.[address] [facility] % 5.5 % 4.3-13.2 1 Eo% 1.7 % 0.0-6.6 1 Bas% 0.4 % 0.0-1.1 1 Neut# 5.53 K/uL 1.8-7.0 1 Lymph # 1.59 K/uL 1.0-4.[address] # 0.42 K/uL 0.3-0.9 1 Eos # 0.13 K/uL 0.0-0.5 1 Baso # 0.03 K/uL 0.0-0.1 1 Comprehensive Metabolic Panel 07/04/2017 Glucose 113 mg/dL High 74-106 1 BUN 12 mg/dL 7-18 1 Creatinine 0.7 mg/dL 0.6-1.3 1 Glom Filtration Rate, Estimate >60 mL/min >60 1 If >60 mL/min >60 1, 3 BUN/Creat 17.1 ratio 1 Sodium 142 mmol/L 136-145 1 Potassium 3.2 mmol/L Low 3.5-5.1 1 Chloride 106 mmol/L 98-107 1 Carbon Dioxide 31 mmol/L 21-32 1 Anion Gap 5 mEq/L Low 8-16 1 Calcium 9.9 mg/dL 8.5-10.1 1 Total Protein 7.8 g/dL 6.4-8.2 1 Albumin 3.8 g/dL 3.4-5.0 1 Globulin 4.0 g/dL 1.9-4.3 1 Alb/Glob 1.0 ratio 1 Bilirubin,Total 0.2 mg/dL 0.2-1.0 1 Sgot/Ast 20 U/L 15-37 1 SGPT/Alt 47 U/L 12-78 1 Alkaline Phosphatase 207 U/L High 45-117 1 Laboratory test finding 07/04/2017 Vitamin B12 389 pg/mL 193-986 1 Magnesium 2.0 mg/dL 1.8-2.4 1 CK 72 U/L 26-192 1 Vitamin D,25-Hydroxy 28.0 ng/mL Low 30.0-100.0 1, 4 Basic Metabolic Panel 06/10/2017 Hco3 Ser-sCnc 26 mmol/L 22-29 Chloride SerPl-sCnc 104 mmol/L 96-108 Creat SerPl-mCnc 0.68 mg/dL 0.4-1.1 Glucose SerPl-mCnc 119 mg/dL High 65-110 Potassium SerPl-sCnc 4.0 mmol/L 3.3-5.1 Sodium SerPl-sCnc 141 mmol/L 133-145 BUN SerPl-mCnc 13 mg/dL 8-23 Anion Gap3 SerPl-sCnc 11 mmol/L 8-15 Osmolality SerPl Calc 293 mosm/kg 275-300 Creat/Urea nit SerPl 19 Calcium SerPl-mCnc 8.7 mg/dL Low 8.8-10.2 GFR/Bsa pred.non black SerPl MDRD-ArVRat >90 mL/min/1.73m2 >60 GFR/Bsa pred.black SerPl MDRD-ArVRat >90 mL/min/1.73m2 >60 CBC + Diff, Plat Count 06/10/2017 WBC Num Bld Auto 6.2 10*3/uL 4-10 RBC Num Bld Auto 4.54 10*6/uL 4.1-5.3 Hgb Bld-mCnc 12.9 g/dL 11.5-15.5 Hct VFr Bld Auto 38.2 % 36-45 MCV RBC Auto 84.2 fL 80-96 MCH RBC Qn Auto 28.3 pg 27-33 MCHC RBC Auto-mCnc 33.6 g/dL 32.0-36.0 RDW RBC Auto-Rto 14.4 % 11.5-14.5 Platelet Num Bld Auto 234 10*3/uL 150-400 Differential method Bld Automated Diff Neutrophils/leuk NFr Bld Auto 64 % 33-73 Lymphocytes/leuk NFr Bld Auto 26 % 13-52 Monocytes/leuk NFr Bld Auto 7 % 0-11 Eosinophil/leuk NFr Bld Auto 2 % 0-5 Basophils/leuk NFr Bld Auto 1 % 0-2 Neutrophils Num Bld Auto 3.96 10*3/uL 1.8-7.0 Lymphocytes Num Bld Auto 1.65 10*3/uL 1.2-4.0 Monocytes Num Bld Auto 0.43 10*3/uL 0-0.8 Eosinophil Num Bld Auto 0.15 10*3/uL 0-0.5 Basophils Num Bld Auto 0.06 10*3/uL 0-0.2 nRBC/100 WBC Bld Auto-Rto 0 /100{WBCs} 0-0 Basic Metabolic Panel 06/09/2017 Hco3 Ser-sCnc 24 mmol/L 22-29 Chloride SerPl-sCnc 106 mmol/L 96-108 Creat SerPl-mCnc 0.69 mg/dL 0.4-1.1 Glucose SerPl-mCnc 100 mg/dL 65-110 Potassium SerPl-sCnc 4.0 mmol/L 3.3-5.1 Sodium SerPl-sCnc 142 mmol/L 133-145 BUN SerPl-mCnc 11 mg/dL 8-23 Anion Gap3 SerPl-sCnc 12 mmol/L 8-15 Osmolality SerPl Calc 293 mosm/kg 275-300 Creat/Urea nit SerPl 16 Calcium SerPl-mCnc 8.6 mg/dL Low 8.8-10.2 GFR/Bsa pred.non black SerPl MDRD-ArVRat >90 mL/min/1.73m2 >60 GFR/Bsa pred.black SerPl MDRD-ArVRat >90 mL/min/1.73m2 >60 CBC + Diff, Plat Count 06/09/2017 WBC Num Bld Auto 5.3 10*3/uL 4-10 RBC Num Bld Auto 4.48 10*6/uL 4.1-5.3 Hgb Bld-mCnc 13.0 g/dL 11.5-15.5 Hct VFr Bld Auto 38.0 % 36-45 MCV RBC Auto 84.7 fL 80-96 MCH RBC Qn Auto 29.0 pg 27-33 MCHC RBC Auto-mCnc 34.2 g/dL 32.0-36.0 RDW RBC Auto-Rto 14.5 % 11.5-14.5 Platelet Num Bld Auto 219 10*3/uL 150-400 Differential method Bld Manual Diff Neutrophils/leuk NFr Bld Auto 63 % 33-73 Lymphocytes/leuk NFr Bld Auto 28 % 13-52 Monocytes/leuk NFr Bld Auto 7 % 0-11 Eosinophil/leuk NFr Bld Auto 2 % 0-5 Neutrophils Num Bld Auto 3.35 10*3/uL 1.8-7.0 Lymphocytes Num Bld Auto 1.50 10*3/uL 1.2-4.0 Monocytes Num Bld Auto 0.35 10*3/uL 0-0.8 Eosinophil Num Bld Auto 0.10 10*3/uL 0-0.5 Laboratory test finding 06/09/2017 Glucose Poc 110 mg/dL High 70-105 Urinalysis/Urine Culture 06/08/2017 Color Ur Yellow 5 Clarity Ur Clear 5 Sp Gr Ur Refract.auto 1.032 High 1.003-1.030 5 pH Ur Strip.auto 8.0 5.0-8.0 5 Prot Ur Strip.auto-mCnc Negative mg/dL <10 5 Glucose Ur Strip.auto-mCnc Negative mg/dL Negative 5 Ketones Ur Strip.auto-mCnc Negative mg/dL Negative 5 Bilirub Ur Ql Strip.auto Negative Negative 5 Hgb Ur Ql Strip.auto Negative Negative 5 Leukocyte esterase Ur Ql Negative Rommel/uL Negative 5 Strip.auto Nitrite Ur Ql Strip.auto Negative Negative 5 WBC Num/area UrnS Auto <1 /HPF 0-5 5 RBC Num/area UrnS Auto <1 /HPF 0-3 5 Service Cmnt XXX-Imp Urinalysis does <SEE 5, 6 NOTE> Squamous Num/area UrnS Auto <1 /HPF None 5 I-Stat Chem 8 06/08/2017 Sodium Bld-sCnc 145 mmol/L 133-145 Potassium Bld-sCnc 3.3 mmol/L 3.3-5.1 Chloride Bld-sCnc 108 mmol/L 96-108 Co2 Bld-sCnc 25 mmol/L 22-29 Anion Gap Bld-sCnc 12 mmol/L 8-15 Ca-I Bld-sCnc 1.21 mmol/L 1.13-1.32 Glucose Bld-mCnc 82 mg/dL 65-110 BUN Bld-mCnc 13 mg/dL 8-23 Creat Bld-mCnc 0.6 mg/dL 0.4-1.1 Hct VFr Bld 32 % Low 36-45 Hgb Bld Calc-mCnc 10.9 g/dL Low 11.5-15.5 Comprehensive Metabolic Garg 06/08/2017 Albumin SerPl BCG-mCnc 4.1 g/dL 3.4-4.8 7 Bilirub SerPl-mCnc 0.2 mg/dL 0.2-1.0 7 Calcium SerPl-mCnc 9.2 mg/dL 8.8-10.2 7 Chloride SerPl-sCnc 105 mmol/L 96-108 7 Creat SerPl-mCnc 0.74 mg/dL 0.4-1.1 7 Glucose SerPl-mCnc 87 mg/dL 65-110 7 Alp SerPl-cCnc 142 U/L High 35-104 7 Potassium SerPl-sCnc 4.0 mmol/L 3.3-5.1 7 Prot SerPl-mCnc 6.6 g/dL 6.4-8.3 7 Sodium SerPl-sCnc 143 mmol/L 133-145 7 Ast SerPl-cCnc 25 U/L <32 7 BUN SerPl-mCnc 14 mg/dL 8-23 7 Osmolality SerPl Calc 296 mosm/kg 275-300 7 Creat/Urea nit SerPl 19 7 Hco3 Ser-sCnc 28 mmol/L 22-29 7 Alt SerPl-cCnc 29 U/L <31 7 Anion Gap3 SerPl-sCnc 10 mmol/L 8-15 7 Albumin/Glob SerPl 1.6 7 GFR/Bsa pred.non black SerPl MDRD-ArVRat 88 mL/min/1.73m2 >60 7 GFR/Bsa pred.black SerPl MDRD-ArVRat >90 mL/min/1.73m2 >60 7 Laboratory test 06/08/2017 TSH 1.970 u[IU]/mL 0.270-4.200 7 finding Lipid Profile 1 06/08/2017 Cholest SerPl-mCnc 240 mg/dL High <200 7 Trigl SerPl-mCnc 263 mg/dL High <200 7 HDLc SerPl-mCnc 47 mg/dL >40 7 LDLc SerPl Calc-mCnc 140 mg/dL High <100 7 VLDLc SerPl Calc-mCnc 53 mg/dL High 16-42 7 NonHDLc SerPl-mCnc 193 mg/dL High <130 7 Hemoglobin A1c 06/08/2017 Hgb A1c MFr Bld HPLC 5.2 % 4.0-6.0 8, 9 Est. average glucose Bld gHb Est-mCnc 103 mg/dL <126 8 Lipid Profile 1 06/08/2017 Cholest SerPl-mCnc 240 mg/dL High <200 8 Trigl SerPl-mCnc 263 mg/dL High <200 8 HDLc SerPl-mCnc 47 mg/dL >40 8 LDLc SerPl Calc-mCnc 140 mg/dL High <100 8 VLDLc SerPl Calc-mCnc 53 mg/dL High 16-42 8 NonHDLc SerPl-mCnc 193 mg/dL High <130 8 Comprehensive Metabolic Garg 06/08/2017 Albumin SerPl BCG-mCnc 4.1 g/dL 3.4-4.8 8 Bilirub SerPl-mCnc 0.2 mg/dL 0.2-1.0 8 Calcium SerPl-mCnc 9.2 mg/dL 8.8-10.2 8 Chloride SerPl-sCnc 105 mmol/L 96-108 8 Creat SerPl-mCnc 0.74 mg/dL 0.4-1.1 8 Glucose SerPl-mCnc 87 mg/dL 65-110 8 Alp SerPl-cCnc 142 U/L High 35-104 8 Potassium SerPl-sCnc 4.0 mmol/L 3.3-5.1 8 Prot SerPl-mCnc 6.6 g/dL 6.4-8.3 8 Sodium SerPl-sCnc 143 mmol/L 133-145 8 Ast SerPl-cCnc 25 U/L <32 8 BUN SerPl-mCnc 14 mg/dL 8-23 8 Osmolality SerPl Calc 296 mosm/kg 275-300 8 Creat/Urea nit SerPl 19 8 Hco3 Ser-sCnc 28 mmol/L 22-29 8 Alt SerPl-cCnc 29 U/L <31 8 Anion Gap3 SerPl-sCnc 10 mmol/L 8-15 8 Albumin/Glob SerPl 1.6 8 GFR/Bsa pred.non black SerPl MDRD-ArVRat 88 mL/min/1.73m2 >60 8 GFR/Bsa pred.black SerPl MDRD-ArVRat >90 mL/min/1.73m2 >60 8 Laboratory test 06/08/2017 TSH 1.970 u[IU]/mL 0.270-4.200 8 finding Sodium SerPl-sCnc 06/21/2016 Sodium SerPl-sCnc 141 136-145 Serum or plasma 06/21/2016 Serum or plasma 199 High <150 triglyceride triglyceride measurement measurement (mass/vol (mass/volume) Serum or plasma 06/21/2016 Serum or plasma 241 High <200 cholesterol cholesterol measurement measurement (mass/volu (mass/volume) Serum or plasma 06/21/2016 Serum or plasma 63 >40 cholesterol in HDL cholesterol in HDL measurement (ma measurement (mass/volume) Serum or plasma 06/21/2016 Serum or plasma 26.9 Low 30.0-100.0 25-hydroxyvitamin D 25-hydroxyvitamin D measurement (m measurement (mass/volume) Prot SerPl-mCnc 06/21/2016 Prot SerPl-mCnc 7.7 6.4-8.2 Potassium SerPl-sCnc 06/21/2016 Potassium 3.9 3.5-5.1 [facility] SerPl Calc-mCnc 06/21/2016 LDLc SerPl 138 < 100 Calc-nc Hgb A1c MFr Bld 06/21/2016 Hgb A1c MFr Bld 5.4 4.2-6.3 Glucose 06/21/2016 Glucose 94 74-106 [Mass/volume] in [Mass/volume] in Serum or Plasma Serum or Plasma Globulin Ser 06/21/2016 Globulin Ser 3.9 1.9-4.3 Calc-mCnc Calc-mCnc Albumin SerPl-mCnc 06/21/2016 Albumin SerPl-mCnc 3.8 3.4-5.0 Alt SerPl-cCnc 06/21/2016 Alt [facility] 42 12-78 Alp SerPl-cCnc 06/21/2016 Alp SerPl-cCnc 178 High 45-117 Laboratory test 06/21/2016 Thyroid Stim 4.44 uIU/mL High 0.30-4.20 10 finding Hormone Vitamin D,25-Hydroxy 26.9 ng/mL Low 30.0-100.0 10, 11 LDL Cholesterol Profile 06/21/2016 Cholesterol 241 mg/dL High <200 10 , 12 Triglycerides 199 mg/dL High <150 10, 13 HDL Cholesterol 63 mg/dL >40 10, 14 LDL-Cholesterol 138 mg/dL < 100 10, 15 Comprehensive Metabolic Panel 06/21/2016 Glucose 94 mg/dL 74-106 10 BUN 12 mg/dL 7-18 10 Creatinine 0.8 mg/dL 0.6-1.3 10 Glom Filtration Rate, Estimate >60 mL/min >60 10 If >60 mL/min >60 10, 16 BUN/Creat 15.0 ratio 10 Sodium 141 mmol/L 136-145 10 Potassium 3.9 mmol/L 3.5-5.1 10 Chloride 105 mmol/L 98-107 10 Carbon Dioxide 28 mmol/L 21-32 10 Anion Gap 8 mEq/L 8-16 10 Calcium 9.2 mg/dL 8.5-10.1 10 Total Protein 7.7 g/dL 6.4-8.2 10 Albumin 3.8 g/dL 3.4-5.0 10 Globulin 3.9 g/dL 1.9-4.3 10 Alb/Glob 1.0 ratio 10 Bilirubin,Total 0.3 mg/dL 0.2-1.0 10 Sgot/Ast 23 U/L 15-37 10 SGPT/Alt 42 U/L 12-78 10 Alkaline Phosphatase 178 U/L High 45-117 10 Glycohemoglobin A1c 06/21/2016 Glycohemoglobin (A1c) 5.4 % 4.2-6.3 10, 17 eAG 108 mg/dL 10 Albumin/Glob SerPl 06/21/2016 Albumin/Glob SerPl 1.0 Anion Gap SerPl-sCnc 06/21/2016 Anion Gap SerPl-sCnc 8 8-16 Aspartate 06/21/2016 Aspartate 23 15-37 aminotransferase aminotransferase [Enzymatic activity/vol [Enzymatic activity/volume] in Serum or Plasma BUN SerPl-mCnc 06/21/2016 BUN SerPl-mCnc 12 7-18 BUN/Creat SerPl 06/21/2016 BUN/Creat SerPl 15.0 Bilirub SerPl-mCnc 06/21/2016 Bilirub SerPl-mCnc 0.3 0.2-1.0 Blood glucose mean value 06/21/2016 Blood glucose mean value 108 measurement estimated measurement estimated fro from glycated hemoglobin (mass/volume) Co2 SerPl-sCnc 06/21/2016 Co2 SerPl-sCnc 28 21-32 Calcium SerPl-mCnc 06/21/2016 Calcium SerPl-mCnc 9.2 8.5-10.1 Chloride SerPl-sCnc 06/21/2016 Chloride SerPl-sCnc 105 98-107 Creat SerPl-mCnc 06/21/2016 Creat SerPl-mCnc 0.8 0.6-1.3 Basic Metabolic Panel 03/28/2016 Glucose 139 mg/dL High 74-106 18 BUN 12 mg/dL 7-18 18 Creatinine 0.7 mg/dL 0.6-1.3 18 Glom Filtration Rate, Estimate >60 mL/min >60 18 If >60 mL/min >60 18, 19 BUN/Creat 17.1 ratio 18 Sodium 141 mmol/L 136-145 18 Potassium 3.6 mmol/L 3.5-5.1 18 Chloride 104 mmol/L 98-107 18 Carbon Dioxide 27 mmol/L 21-32 18 Anion Gap 10 mEq/L 8-16 18 Calcium 9.2 mg/dL 8.5-10.1 18 Glycohemoglobin A1c 03/07/2016 Glycohemoglobin (A1c) 5.5 % 4.2-6.3 20, 21 eAG 111 mg/dL 20 Comprehensive Metabolic Panel 03/07/2016 Glucose 116 mg/dL High 74-106 20 BUN 12 mg/dL 7-18 20 Creatinine 0.7 mg/dL 0.6-1.3 20 Glom Filtration Rate, Estimate >60 mL/min >60 20 If >60 mL/min >60 20, 22 BUN/Creat 17.1 ratio 20 Sodium 138 mmol/L 136-145 20 Potassium 3.3 mmol/L Low 3.5-5.1 20 Chloride 102 mmol/L 98-107 20 Carbon Dioxide 29 mmol/L 21-32 20 Anion Gap 7 mEq/L Low 8-16 20 Calcium 8.8 mg/dL 8.5-10.1 20 Total Protein 7.2 g/dL 6.4-8.2 20 Albumin 3.5 g/dL 3.4-5.0 20 Globulin 3.7 g/dL 1.9-4.3 20 Alb/Glob 0.9 ratio 20 Bilirubin,Total 0.3 mg/dL 0.2-1.0 20 Sgot/Ast 21 U/L 15-37 20 SGPT/Alt 33 U/L 12-78 20 Alkaline Phosphatase 160 U/L High 45-117 20 LDL Cholesterol Profile 03/07/2016 Cholesterol 234 mg/dL High <200 20 , 23 Triglycerides 199 mg/dL High <150 20, 24 HDL Cholesterol 48 mg/dL >40 20, 25 LDL-Cholesterol 146 mg/dL < 100 20, 26 Laboratory test 03/07/2016 Vitamin D,25-Hydroxy 26.8 ng/mL Low 30.0-100.0 20, 27 finding Thyroid Stim Hormone 4.57 uIU/mL High 0.30-4.20 20 Laboratory test finding 05/11/2015 Esophageal Biopsy See Note 28 Comprehensive Metabolic Panel 05/09/2015 Glucose 92 mg/dL 74-106 BUN 13 mg/dL 7-18 Creatinine 0.7 mg/dL 0.6-1.3 Glom Filtration Rate, Estimate >60 mL/min >60 If >60 mL/min >60 29 BUN/Creat 18.5 ratio Sodium 138 mmol/L 136-145 Potassium 3.5 mmol/L 3.5-5.1 Chloride 105 mmol/L 98-107 Carbon Dioxide 26 mmol/L 21-32 Anion Gap 7 mEq/L Low 8-16 Calcium 9.1 mg/dL 8.5-10.1 Total Protein 8.0 g/dL 6.4-8.2 Albumin 4.1 g/dL 3.4-5.0 Globulin 3.9 g/dL 1.9-4.3 Alb/Glob 1.1 ratio Bilirubin,Total 0.2 mg/dL 0.2-1.0 Sgot/Ast 19 U/L 15-37 SGPT/Alt 36 U/L 12-78 Alkaline Phosphatase 136 U/L High 45-117 Glycohemoglobin A1c 05/09/2015 Glycohemoglobin (A1c) 5.4 % 4.2-6.3 30 eAG 108 mg/dL Laboratory test finding 07/31/2014 CBC See Note 31 CBC W/Automated Diff 07/31/2014 White Blood Count 12.0 K/uL High 3.1-10.7 Red Blood Count 3.04 M/uL Low 3.90-5.40 Hemoglobin 9.1 gm/dL Low 11.6-15.8 Hematocrit 28.7 % Low 36.0-46.1 Mean Cell Volume 94.4 fl 80.9-99.0 Mean Corpuscular HGB 29.9 pg 25.9-32.7 Mean Corpuscular HGB Conc 31.7 g/dL 30.8-34.3 Platelet Count 155 K/uL 155-360 Red Cell Distri Width SD 48.8 fl High 3-47 Red Cell Distri Width %CV 14.6 % High 11.7-14.4 Mean Platelet Volume 11.3 fL 8.9-12.4 Neut# 7.33 K/uL High 1.0-7.0 Lymph # 2.69 K/uL 1.8-7.0 [facility] # 1.51 K/uL High 0.3-0.9 Eos # 0.42 K/uL 0.0-0.5 Baso # 0.07 K/uL 0.0-0.1 Laboratory test finding 09/06/2009 Endometrial Biopsy See Note 32 Laboratory test finding 09/01/2009 Culture If Indicated Comment See Note 33 Urine Culture See Note 34 Urinalysis With Microscopic 09/01/2009 Urine Color YELLOW Yellow Urine Clarity SL CLOUDY Clear Urine Glucose - Dipstick NEGATIVE mg/dL Negative Urine Bilirubin - Dipstick NEGATIVE Negative Urine Ketone NEGATIVE mg/dL Negative Urine Specific [place] 1.025 1.010-1.030 Urine Blood LARGE High Negative Urine PH 6.0 Low 6.5-7.5 Urine Protein - Dipstick TRACE mg/dL Negative Urine Urobilinogen - Dipstick 0.2 E.U./dL 0.2-1.0 Urine Nitrite - Dipstick POSITIVE High Negative Urine Leuk Esterase MODERATE High Negative Urine RBC 20-30 rbc/hpf High 0-7 Urine WBC 10-15 wbc/hpf High 0-7 Urine Bacteria MODERATE NONESEEN High Laboratory test finding 08/30/2009 ThinPrep Pap: See Note 35 Endocervix Smear Osteoparosis Panel 08/30/2009 Thyroid Stim Hormone 1.96 uIU/mL 0.49-4.67 Calcium 9.8 mg/dL 8.5-10.1 Phosphorous 2.5 mg/dL 2.4-4.7 Vitamin D,25-Hydroxy 12.5 ng/mL Low 32.0-100.0 36 Creatinine 0.7 mg/dL 0.5-1.4 PTH,Intact 88 pg/mL High 15-65 37 1 I67.9,Z79.899,Z13.21 2 Performed at: RN - [facility] [address] [id number] Purification Operator: Lashay Bradshaw MD, Phone: [phone] 3 Note: Persistent reduction for 3 months or more in an eGFR <60 mL/min/1.73 m2 defines CKD. Patients with eGFR values >/=60 mL/min/1.73 m2 may also have CKD if evidence of persistent proteinuria is present. The original MDRD equation for estimated GFR is not valid for patients less than 18 years of age. Additional information may be found at www.kdoqi.org. 4 Vitamin D deficiency has been defined by the [place] [employer] and an Endocrine Society practice guideline as a level of serum 25-OH vitamin D less than 20 ng/mL (1,2). The Endocrine Society went on to further define vitamin D insufficiency as a level between 21 and 29 ng/mL (2). 1. IOM ([place] [employer]). 2010. Dietary reference intakes for calcium and D. [place]: The National Academies Press. 2. Ilan MF, Yvon NC, Liam MARTINEZ, et al. Evaluation, treatment, and prevention of vitamin D deficiency: an Endocrine Society clinical practice guideline. JCEM. 2011 Nov; 96(7):1911-30. Performed at: RN - [facility] [address] [id number] Purification Operator: Lashay Bradshaw MD, Phone: [phone] 5 CATHETER TYPE MIDSTREAM URINE, CLEAN CATCH 6 Urinalysis does not suggest infection. Culture not performed 7 TEST ADDED AT UNIT'S PHONED REQUEST 8 TEST ADDED AT UNIT'S PHONED REQUEST USE [id number] (NOTE) <5.7% Average risk of diabetes(ADA) 5.7-6.4% Increased risk of diabetes(ADA) >/=6.5% Diagnostic for diabetes(ADA) 10 E11.42 E78.5 E03.9 E55.9 11 Vitamin D deficiency has been defined by the [place] [employer] and an Endocrine Society practice guideline as a level of serum 25-OH vitamin D less than 20 ng/mL (1,2). The Endocrine Society went on to further define vitamin D insufficiency as a level between 21 and 29 ng/mL (2). 1. IOM ([place] [employer]). 2010. Dietary reference intakes for calcium and D. [place]: The National Academies Press. 2. Ilan MF, Yvon NC, Liam MARTINEZ, et al. Evaluation, treatment, and prevention of vitamin D deficiency: an Endocrine Society clinical practice guideline. JCEM. 2010; 96(7):1911-30. Performed at: RN - [facility] [address] [id number] Purification Operator: Lashay Bradshaw MD, Phone: [phone] 12 Reference Guidelines*: Desirable: ........... < 200 mg/dL Borderline High: ..... 200-239 mg/dL High: ................ >=240 mg/dL * The National Cholesterol Education Program (NCEP) 13 Reference Guidelines*: Normal: ............. < 150 mg/dL Borderline High: .... 150-199 mg/dL High: ............... 200-499 mg/dL Very High: .......... > 500 mg/dL * Source: National Cholesterol Education Program (NCEP) 14 Reference Guidelines*: Low HDL: ..... < 40 mg/dL Normal: ..... 40-60 mg/dL Desirable: ... > 60 mg/dL *The National Cholesterol Education Program(NCEP) 15 Reference Guidelines*: Optimal:........... <100 mg/dL Near Optimal....... 100-129 mg/dL Borderline High.... 130-159 mg/dL High............... 160-189 mg/dL Very High.......... >=190 mg/dL * Source: National Cholesterol Education Program (NCEP) 16 Note: Persistent reduction for 3 months or more in an eGFR <60 mL/min/1.73 m2 defines CKD. Patients with eGFR values >/=60 mL/min/1.73 m2 may also have CKD if evidence of persistent proteinuria is present. The original MDRD equation for estimated GFR is not valid for patients less than 18 years of age. Additional information may be found at www.kdoqi.org. 17 Elevated levels of HbA1c suggest the need for more aggressive treatment of glycemia. The [place] Diabetes Association recommends that a primary goal of therapy should be a HbA1c of <7% and that physicians should re-evaluate the treatment regimen in patients with HbA1c values consistently >8%. 18 E87.6 19 Note: Persistent reduction for 3 months or more in an eGFR <60 mL/min/1.73 m2 defines CKD. Patients with eGFR values >/=60 mL/min/1.73 m2 may also have CKD if evidence of persistent proteinuria is present. The original MDRD equation for estimated GFR is not valid for patients less than 18 years of age. Additional information may be found at www.kdoqi.org. 20 E11.42,F32.89,H93.13 21 Elevated levels of HbA1c suggest the need for more aggressive treatment of glycemia. The [place] Diabetes Association recommends that a primary goal of therapy should be a HbA1c of <7% and that physicians should re-evaluate the treatment regimen in patients with HbA1c values consistently >8%. 22 Note: Persistent reduction for 3 months or more in an eGFR <60 mL/min/1.73 m2 defines CKD. Patients with eGFR values >/=60 mL/min/1.73 m2 may also have CKD if evidence of persistent proteinuria is present. The original MDRD equation for estimated GFR is not valid for patients less than 18 years of age. Additional information may be found at www.kdoqi.org. 23 Reference Guidelines*: Desirable: ........... < 200 mg/dL Borderline High: ..... 200-239 mg/dL High: ................ >=240 mg/dL * The National Cholesterol Education Program (NCEP) 24 Reference Guidelines*: Normal: ............. < 150 mg/dL Borderline High: .... 150-199 mg/dL High: ............... 200-499 mg/dL Very High: .......... > 500 mg/dL * Source: National Cholesterol Education Program (NCEP) 25 Reference Guidelines*: Low HDL: ..... < 40 mg/dL Normal: ..... 40-60 mg/dL Desirable: ... > 60 mg/dL *The National Cholesterol Education Program(NCEP) 26 Reference Guidelines*: Optimal:........... <100 mg/dL Near Optimal....... 100-129 mg/dL Borderline High.... 130-159 mg/dL High............... 160-189 mg/dL Very High.......... >=190 mg/dL * Source: National Cholesterol Education Program (NCEP) 27 Vitamin D deficiency has been defined by the [place] [employer] and an Endocrine Society practice guideline as a level of serum 25-OH vitamin D less than 20 ng/mL (1,2). The Endocrine Society went on to further define vitamin D insufficiency as a level between 21 and 29 ng/mL (2). 1. IOM ([place] [employer]). 2010. Dietary reference intakes for calcium and D. [place]: The National Academies Press. 2. Ilan MF, Yvon NC, Liam MARTINEZ, et al. Evaluation, treatment, and prevention of vitamin D deficiency: an Endocrine Society clinical practice guideline. JCEM. 2010; 96(7):1911-30. Performed at: RN - [facility] [address] [id number] Purification Operator: Lashay Bradshaw MD, Phone: [phone] 28 OPERATION/PROCEDURE Upper endoscopy DIAGNOSIS: "ESOPHAGUS, BIOPSY": - SQUAMOUS AND COLUMNAR MUCOSA WITH CHRONIC INFLAMMATION. - NEGATIVE FOR INTESTINAL METAPLASIA AND DYSPLASIA. EP/winsome 1012 GROSS Received in formalin in an appropriately labeled container with patient's name and accession number. The specimen is designated as "ESOPHAGEAL BIOPSY" and consists of multiple pieces of leija red rubbery tissue in aggregate measuring 0.4 x 0.3 x 0.2 cm. The specimen is submitted entirely in a single cassette. CC/winsome PRE OPERATIVE DIAGNOSIS Screening ca; GERD REVIEW CODE CODE: I Signed Electronically signed Kandi HANNAH MD [id number] 29 Note: Persistent reduction for 3 months or more in an eGFR <60 mL/min/1.73 m2 defines CKD. Patients with eGFR values >/=60 mL/min/1.73 m2 may also have CKD if evidence of persistent proteinuria is present. The original MDRD equation for estimated GFR is not valid for patients less than 18 years of age. Additional information may be found at www.kdoqi.org. 30 Elevated levels of HbA1c suggest the need for more aggressive treatment of glycemia. The [place] Diabetes Association recommends that a primary goal of therapy should be a HbA1c of <7% and that physicians should re-evaluate the treatment regimen in patients with HbA1c values consistently >8%. 31 07/31/14 LAB.YESICA DUPLICATE 32 OPERATION/PROCEDURE Endometrial biopsy DIAGNOSIS: "ENDOMETRIAL BIOPSY": MIXED FRAGMENTS OF CILIATED METAPLASTIC AND INACTIVE ENDOMETRIUM, CONSISTENT WITH PERIMENOPAUSAL CLINICAL DYSFUNCTIONAL UTERINE BLEEDING. [place] 1104 GROSS "ENDOMETRIAL BIOPSY". The specimen is received in an appropriately labeled container. This contains 0.25 mL of pink tissue admixed with mucus. Filtered and submitted in toto within a single cassette. [place] MICROSCOPIC Sections reveal a mixture of ciliated metaplastic and inactive tubular glands in a spindled stroma. The glands are tubular, largely nonstratified, and mitotically inactive. PRE OPERATIVE DIAGNOSIS Post menopausal bleeding; thickened endometrium REVIEW CODE CODE: I PRATIBHA Reyes MD 09/07/09 33 CULTURE TO FOLLOW 34 COLONY COUNT ! >100,000 CFU/ml Organism 1 ! ENTEROCOCCUS GROUP D QUANTITY ! MANY RECOMMENDED THERAPY: ! AMPICILLIN OR AMPICILLIN AND GENTAMICIN. URINARY TRACT INFECTIONS: ! NITROFURANTOIN MAY BE USED FOR UTI'S. NOTE: ! ALL CEPHALOSPORINS ARE INEFFECTIVE. Organism 2 ! URETHRAL TIFFANY 35 CYTOLOGY SCREENER Screened by: NADER Mabry(ASCP) PAP: FINAL REPORT SPECIMEN ADEQUACY: SPECIMEN SATISFACTORY FOR INTERPRETATION AIR-DRYING ARTIFACT AND OBSCURING BLOOD INTERPRETATION: ENDOMETRIAL CELLS IN A WOMAN=>40 YEARS OF AGE ESPECIALLY AFTER MENOPAUSE MAY BE ASSOCIATED WITH BENIGN ENDOMETRIUM, HORMONAL ALTERATIONS AND, LESS COMMONLY, ENDOMETRIAL/ UTERINE ABNORMALITIES NEGATIVE FOR SQUAMOUS INTRAEPITHELIAL LESION OR MALIGNANCY COMMENT: BENIGN REACTIVE SQUAMOUS CELL CHANGES BENIGN CELLULAR CHANGES IN ENDOCERVICAL CELLS ATROPHIC SMEAR PATTERN ENDOMETRIAL SAMPLING SUGGESTED IF CLINICALLY INDICATED THINPREP PREPARED PAP SLIDE # Prepared in the Cytology laboratory from the ThinPrep sample is 1 ThinPrep smear. PAP ACCESSI QUESTIONNAIRE 05/22 PERTINENT CLINICAL HISTORY FOR PAP (HEAD NURSE) CYTOLOGY (Check all that apply): ? Post ? Menopause? LMP date: 2000 If patient had related surgical procedure: Related Therapy: Significant Clinical History: V72.31 DISCLAIMER: The Pap smear is a screening test and not a diagnostic procedure. False negative and false positive results can and do occur for a number of reasons. Regular screening provides an aid in detecting treatable cervical abnormalities, but should not be used as the only means for detecting cervical dysplasia and carcinoma. Signed JUAN CARLOS DUTTA MD 09/02/09 36 Recent studies consider the lower limit of 32.0 ng/mL to be a threshold for optimal health. Seth GLASGOW. J Nutr. 2004;135(2):317-22. Performed at: [facility] [address] [place] [id number] Purification Operator: Pritesh Zarate MD 37 Performed at: [facility] [address] [place] [id number] Purification Operator: Pritesh Zarate MD Procedures Date CPT Code Description Status Comment 06/13/2017 Mammogram Completed 04/18/2016 16635 Colonoscopy Completed 04/18/2016 Colonoscopy Completed Document: 04/18/16 - Op Report - Colonoscopy Document: 04/18/16 - Colon Pics 04/12/2016 Colonoscopy Completed Prior 04/2015, 200805/11/2015 04577 EGD Completed 04/28/2015 67983 Remove Impacted Cerumen Completed 02/16/2010 65017 EKG Interpretation And Report Completed Only 09/15/2009 85691 EKG Interpretation And Report Completed Only 09/06/2009 33932 Endometrial Biopsy Completed 06/28/2008 84095 Colonoscopy Completed Encounters Type Date Location Provider CPT E/M Dx Office Visit 07/15/2017 11:00a Primary Care Office Verna Jade M.D. 52641 I67.9 I63.9 Z79.899 E78.5 I10 E55.9 E87.6 Office Visit 07/02/2017 8:40a Primary Care Office Verna Jade M.D. 02437 I67.9 I63.9 Z79.899 E78.5 I10 Z13.21 E03.9 I69.391 I69.322 Office Visit 05/30/2017 11:15a Primary Care Office Leighlesli Desai [facility] 48848 R20.2 Z12.31 G47.62 Office Visit 01/16/2017 11:30a Primary Care Office Rosa Carcamo 31732 Z04.3 PA-C I10 E11.42 E03.9 Z23 Office Visit 07/09/2016 1:00p Primary Care Office Rosa Carcamo 88535 E11.42 PA-C I10 E78.5 E55.9 E87.6 E03.9 R20.2 M79.7 Office Visit 03/28/2016 2:30[place] [address] Z12.11 K21.0 Office Visit 03/14/2016 9:00a Primary Care Office Rosa Carcamo 94092 E11.42 PA-C I10 E78.5 E55.9 E87.6 E03.9 R20.2 M79.7 Office Visit 03/05/2016 11:30a Primary Care Office Rosa Carcamo 77855 E11.42 PA-C I10 E78.5 Z12.11 K21.9 F32.89 M79.7 H93.13 R20.2 M89.8x8 Z12.31 Z23 Office Visit 05/25/2015 11:30a MERCED Carcamo PA-C 38107 E11.42 I10 E78.5 Z12.11 K21.9 F32.8 M79.7 H93.13 Office Visit 04/28/2015 3:00p MERCED Carcamo PA-C 85083 E11.42 I10 E78.5 Z12.11 K21.9 F32.8 H61.22 Z23 Office Visit 12/28/2014 1:30p MERCED Alcantara M.D. 34078 357.2 278.00 250.00 401.9 272.4 Office Visit 09/20/2009 10:50a director operating room Office Balwinder Chase M.D. 43656 627.1 Office Visit 09/06/2009 8:30a director operating room Office Balwinder Chase M.D. 97807 627.1 Office Visit 08/30/2009 2:00p director operating room Office Balwinder Chase M.D. 18415 V72.31 627.1 Office Visit 07/20/2008 9:45a MERCED Alcantaar M.D. 01501 401.1 715.00 530.81 Office Visit 04/21/2008 11:00a MERCED Alcantara M.D. 27156 729.1 401.1 530.81 V03.82 Office Visit 11/19/2007 11:30a MERCED Alcantara M.D. 84759 787.1 401.1 Plan of Care Future Appointment(s):09/12/2017 10:00 am - Verna Jade M.D. at Primary [facility]7509/27/2017 9:30 am - Leigh Desai [facility] at Primary Care [id number] - Verna Jade M.D.I67.9 Cerebrovascular disease, ptphlqzbblkX91.9 Cerebral infarction, ocarlnhoqtpD20.899 Other long-term (current) drug therapyNew Labs:Comprehensive Metabolic PanelCBS W/Automated DiffE78.5 Hyperlipidemia, unspecifiedNew Labs:HDL CholesterolDirect LDL DionapjkbulWvijxwkhsnqtsW53 Essential (primary) vbposdcmjnwkQ21.9 Vitamin D deficiency, unspecifiedNew Labs:Vitamin D,25-FmjczkdM20.6 HypokalemiaNew Medication:Klor-Con 10 10 MeqNew Labs:MagnesiumFollow up:f/u in early September with fasting labs to be done 1 week prior.
[2017-08-02 18:24] VITALS: BP 107/60
--- NOTE | 2017-08-02 18:59 | UC ---
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 c/o sever pain in the area that is exacerbated by any movement. " -she has h/o kidney stones. history varies. she states that pain did not start until after she fell. But then she says it started a few days ago and may sometimes radiate to anterior abodmen. but no abd pain now. no known hematuria. states that it may feel like a kidney stone pain. no vomiting, no nausea. - History of Current Complaint Stated Complaint: BACK INJURY Time Seen by Provider: 08/02/17 18:44 Pain Intensity: 10 - Allergies/Home Medications Allergies/Adverse Reactions: Allergies Allergy/AdvReac Type Severity Reaction Status Date / Time chocolate flavor Allergy Shortness Verified 08/02/17 18:17 of Breath peanut Allergy Shortness Verified 08/02/17 18:17 of Breath Home Medications: Home Medications Cholecalciferol TAB* [Vitamin D TAB*] 1,000 unit PO DAILY 08/02/17 [History Confirmed 08/02/17] Potassium Chlor TAB* [Klor Con ER TAB 10 MEQ*] 10 meq PO DAILY 08/02/17 [ History Confirmed 08/02/17] PMH/Surg Hx/FS Hx/Imm Hx Previously Healthy: Yes GI/ History: Kidney Stones Psychological History: Anxiety, Depression - Surgical History Surgical History: Yes Surgery Procedure, Year, and Place: B/L TKA, 2012, [facility]. Cystocele repair. tubal - Family History Known Family History: Positive: Hypertension, Renal Disease - Social History Alcohol Use: None Substance Use Type: None Smoking Status (MU): Former Smoker Have You Smoked in the Last Year: No When Did the Patient Quit Smoking/Using Tobacco: 35 YRS AGO - Immunization History Most Recent Influenza Vaccination: FALL 2016 Vaccination Up to Date: No Review of Systems Constitutional: Negative Skin: Negative Eyes: Negative ENT: Negative Respiratory: Negative Cardiovascular: Negative Gastrointestinal: Negative Genitourinary: Negative Motor: Negative Neurovascular: Negative Musculoskeletal: Other: - Rt LBP Neurological: Negative Psychological: Negative Is Patient Immunocompromised?: No All Other Systems Reviewed And Are Negative: Yes Physical Exam Triage Information Reviewed: Yes Appearance: Pain Distress - pain varies, less pain when distracted. Vital Signs: Initial Vital Signs Temp 97.9 F 08/02/17 18:16 Pulse 89 08/02/17 18:16 Resp 18 08/02/17 18:16 BP 107/60 08/02/17 18:16 Pulse Ox 100 08/02/17 18:16 Vital Signs Reviewed: Yes ENT Exam: Normal Neck exam: Normal Neck: Positive: Supple, Nontender Respiratory: Positive: Lungs clear, Normal breath sounds, No respiratory distress Cardiovascular: Positive: RRR Abdomen Description: Positive: Nontender, No Organomegaly, Soft. Negative: CVA Tenderness (R), CVA Tenderness (L) Bowel Sounds: Positive: Present Musculoskeletal: Positive: Other: - tender at right flank at varying areas that are inconstent. not tender when distracted. no bruising or erythema Neurological Exam: Normal Psychological Exam: Normal Skin Exam: Normal Back Pain Course/Dx - Course Course Of Treatment: L/S spine & pelvis films - DJD changes, no frxs - Differential Dx/Diagnosis Differential Diagnosis/HQI/PQRI: Arthritis, Fracture, Strain, Sprain Provider Diagnoses: rt flank strain vs renal colic Discharge - Sign-Out/Discharge Documenting (check all that apply): Discharge - Discharge Plan Condition: Stable Disposition: HOME Patient Education Materials: Musculoskeletal Pain (ED) Referrals: Leigh Desai PA [Primary Care Provider] - 3 Days Additional Instructions: Your xrays showed arthritis but there are no signs of fractures in your pelvis or low back. You should follow up with your doctor who follows you for your kidney stones this week as that may be the cause of your pain. - Billing Disposition and Condition Condition: STABLE Disposition: HOME
--- NOTE | 2017-08-02 19:37 | RAD ---
HISTORY: Low back pain, fall COMPARISONS: None relevant available at the time of dictation VIEWS: 5 , Frontal, lateral, coned-down lateral sacral, and bilateral oblique views of the lumbar spine. FINDINGS: ALIGNMENT: There is a mild levoscoliotic curvature of the spine. VERTEBRAL BODIES: There is multilevel anterolateral marginal osteophyte formation. The vertebral bodies are preserved in height. JOINTS: There is diffuse facet osteoarthritis INTERVERTEBRAL DISCS: There is diffuse loss of intervertebral disc height. SOFT TISSUE: Unremarkable. OTHER: There is osteoarthritis of the hips. IMPRESSION: DEGENERATIVE DISC DISEASE AND OSTEOARTHRITIS. NO ACUTE OSSEOUS INJURY.
--- NOTE | 2017-08-02 19:37 | RAD ---
HISTORY: Right-sided low back pain, fall COMPARISONS: None VIEWS: 1, Single frontal view of the pelvis FINDINGS: BONE DENSITY: Normal. BONES: There is no displaced fracture. JOINTS: There is moderate osteoarthritis of the hips bilaterally. ALIGNMENT: There is no dislocation. SOFT TISSUES: Unremarkable. OTHER FINDINGS: Degenerative changes are noted of the spine. IMPRESSION: OSTEOARTHRITIS. NO ACUTE OSSEOUS INJURY. IF SYMPTOMS PERSIST, RECOMMEND REPEAT IMAGING.
== END 2017-08-02 19:57 | disposition home or self-care (01) ==
LOC: UCCORT 17:51
DX: S39.92XA Unspecified injury of lower back, initial encounter (principal); W22.03XA Walked into furniture, initial encounter; Y93.9 Activity, unspecified; Y92.008 Other place in unspecified non-institutional (private) residence as the place of occurrence of the external cause; Z87.442 Personal history of urinary calculi; F41.9 Anxiety disorder, unspecified; F32.9 Major depressive disorder, single episode, unspecified; Z87.891 Personal history of nicotine dependence
CPT/HCPCS: 72110; 72170; 99211; G0463

== ENCOUNTER 2018-12-03 17:16 | Observation (INO) | payer MEDICARE, OTHER ==
--- NOTE | 2018-12-03 17:30 | ED ---
Syncope/Near Syncope - HPI Summary HPI Summary: A 68 y/o female presents to [facility] with a chief complaint of a near syncopal episode around 15:30 today. The patient felt lightheaded and was eased to the ground. The patient reportedly had some slurred speech before to EMS arrival, had no no slurred speech during EMS evaluation, but has slurred speech currently. Pt has a Hx of 3 TIAs this year in July, August and November. The patient takes Brilinta. She fell and hit her head three days ago and did not seek medical care. She says that currently she feels like she is slurring a little bit. Jes dolan was called at 17:30, [address] Loyola's evaluation. - History Of Current Complaint Time Seen by Provider: 12/03/18 17:24 Hx Obtained From: Patient, EMS Onset/Duration: Sudden Onset, Lasting Hours, Still Present Timing: Intermittent Episode Lasting - intermittent slurred speech Activity At Onset: Unknown Aggravating Factor(s): Nothing Alleviating Factor(s): Nothing Associated Signs And Symptoms: Other - slurred speech - Allergies/Home Medications Allergies/Adverse Reactions: Allergies Allergy/AdvReac Type Severity Reaction Status Date / Time chocolate flavor Allergy Shortness Verified 08/02/17 18:17 of Breath peanut Allergy Shortness Verified 08/02/17 18:17 of Breath Home Medications: Home Medications Atenolol TAB* [Tenormin TAB* 25 MG] 25 mg PO DAILY 12/03/18 [History Confirmed 12/03/18] Atorvastatin* [Lipitor*] 80 mg PO DAILY 12/03/18 [History Confirmed 12/03/18] Cyclobenzaprine (NF) [Cyclobenzaprine 5 MG (NF)] 5 mg PO TID PRN 12/03/18 [ History Confirmed 12/03/18] Dexlansoprazole (NF) [Dexilant (NF)] 60 mg PO DAILY 12/03/18 [History Confirmed 12/03/18] Nortriptyline CAP* [Pamelor CAP*] 10 - 20 mg PO BEDTIME 12/03/18 [History Confirmed 12/03/18] Ticagrelor (NF) [Brilinta 60 MG TAB] 60 mg PO BID 12/03/18 [History Confirmed ] PMH/Surg Hx/FS Hx/Imm Hx Respiratory History: Reports: Hx Asthma Sensory History: Denies: Hx Deafness EENT History: Denies: Hx Deafness Neurological History: Reports: Hx Transient Ischemic Attacks (TIA) - Surgical History Surgery Procedure, Year, and Place: B/L TKA, 2013, [facility]. Cystocele repair. tubal Infectious Disease History: Denies: Hx Clostridium Difficile, Hx Hepatitis, Hx Human Immunodeficiency Virus (HIV), Hx of Known/Suspected MRSA, Hx Shingles, Hx Tuberculosis, Hx Known/ Suspected VRE, Hx Known/Suspected VRSA, History Other Infectious Disease - Family History Known Family History: Positive: Hypertension, Renal Disease - Social History Alcohol Use: None Substance Use Type: Reports: None Smoking Status (MU): Former Smoker Have You Smoked in the Last Year: No Review of Systems Negative: Fever Neurological: Other - positive: near syncopal, lightheaded Positive: Slurred Speech All Other Systems Reviewed And Are Negative: Yes Physical Exam - Summary Physical Exam Summary: GENERAL: Patient is a well-developed and nourished F who is lying comfortable in the stretcher. Patient is not in any acute respiratory distress. HEAD AND FACE: Normocephalic EYES: PERRLA, EOMI x 2. EARS: Hearing grossly intact. MOUTH: Oropharynx within normal limits. NECK: Supple, trachea is midline, no adenopathy, no JVD, no carotid bruit. CHEST: Symmetric, no tenderness at palpation LUNGS: Clear to auscultation bilaterally. No wheezing or crackles. CVS: Regular rate and rhythm, S1 and S2 present, no murmurs or gallops appreciated. ABDOMEN: Soft, non-tender. Bowel sounds are normal. No abnormal abdominal pulsations. EXTREMITIES: Full ROM in all major joints, no edema, no cyanosis or clubbing. NEURO: Alert and oriented x 3. No acute neurological deficits. Speech is normal and follows commands. SKIN: Dry and warm Neuro exam extended: Cranial nerves II-XII grossly intact, no dysmetria finger to nose, nml heel to cherry Triage Information Reviewed: Yes Vital Signs Reviewed: Yes Diagnostics - Laboratory Result Diagrams: 12/03/18 18:05 12/03/18 18:05 Lab Statement: Any lab studies that have been ordered have been reviewed, and results considered in the medical decision making process. - CT Brain CT Interpretation Completed By: Radiologist Summary of CT Findings: 1. No acute intracranial abnormality by CT. 2. Old bilateral basal ganglia infarcts. 3. Mild chronic small vessel slightly disease is likely. ED physician has reviewed this imaging report. - EKG 17:20 Cardiac Rate: Bradycardia - 58 bpm EKG Rhythm: Sinus Bradycardia Summary of EKG Findings: EKG at 17:20 showed sinus bradycardia at 58 bpm, LAD. National Institutes Of Health - NIH Scale Level of Consciousness: Alert/Keenly Responsive Ask Patient the Month and His/Her Age: Both Correct Ask Pt to Open/Close Eyes and License Issuer/Release Non-Paretic Hand: Both Correctly Best Gaze (Only Horizontal Eye Movement): Normal Visual Field Testing: No Visual Loss Facial Paresis-Pt to Smile & Close Eyes or Grimace Symmetry: Normal/Symmetrical Motor Function - Right Arm: No Drift-Holds 10 Seconds Motor Function - Left Arm: No Drift-Holds 10 Seconds Motor Function - Right Leg: No Drift-Holds 10 Seconds Motor Function - Left Leg: No Drift-Holds 10 Seconds Limb Ataxia-Must be out of Proportion to Weakness Present: Absent Sensory (Use Pinprick to Test Arms/Legs/Trunk/Face): Normal Best Language (Describe Picture, Name Items): No Aphasia Dysarthria (Read Several Words): Slurs Some Words Extinction and Inattention: No Abnormality Total Score: 1 Re-Evaluation - Re-Evaluation First Eval Re-Evaluation Time: 17:49 Change: Unchanged Comment: blood glucose dropped to 69 from 91. Course/Dx Course Of Treatment: A 68 y/o female presents to [facility] with a chief complaint of a near syncopal episode around 15:30 today. The patient reportedly had some slurred speech before to EMS arrival, had no no slurred speech during EMS evaluation, but has slurred speech currently. The physical exam revealed a GCS of 15 and an NIH of 1 for slurred speech. In the ED course the patient was given Dextrose IV and Sodium Chloride IV. Blood work and chemistries obtained and are WNL. EKG at 17:20 showed sinus bradycardia at 58 bpm, LAD. Brain CT impression: 1. No acute intracranial abnormality by CT. 2. Old bilateral basal ganglia infarcts. 3. Mild chronic small vessel slightly disease is likely. Discussed case with Dr. Ladd at [place] who recommended admission for observation. Case discussed with hospitalist, Dr. Sam. I discussed results with patient. The patient agrees with this plan. - Diagnoses Provider Diagnoses: Slurred speech - Physician Notifications Discussed Care of Patient With: Tami Mcdowell Time Discussed With Above Provider: 18:18 Instructed by Provider To: Admit As Inpatient Discharge - Sign-Out/Discharge Documenting (check all that apply): Patient Departure - admit Patient Received Moderate/Deep Sedation with Procedure: No - Discharge Plan Condition: Fair Disposition: ADMITTED TO [facility] Referrals: No Primary Care Phys,NOPCP [Medical Doctor] - - Billing Disposition and Condition Condition: FAIR Disposition: Admitted to [facility] - Attestation Statements Document Initiated by Scribe: Yes Documenting Scribe: Gabe Stringer Provider For Whom Scribe is Documenting (Include Credential): Dorian Loyola MD Scribe Attestation: Gabe Alfaro, scribed for Dorian Loyola MD on 12/03/18 at 1832. Scribe Documentation Reviewed: Yes Provider Attestation: The documentation as recorded by the Gabe man accurately reflects the service I personally performed and the decisions made by , Millie Loyola MD Status of Scribe Document: Viewed Consult Consult: At 18:[address] Ladd at [place] who recommended admission for observation.
[2018-12-03] MEDS ORDERED: Dextrose 50% VIAL 50 ml IV ONE (17:47)
[2018-12-03] MEDS ORDERED: Dextrose 50% VIAL 50 ml ONE (17:50)
[2018-12-03] MEDS ORDERED: NS 0.9% 1000 ML** 1,000 ML IV ONE ×3 (17:50→18:50)
[2018-12-03 18:14] LABS: ABS Basophils 0.1 10^3/ul (0-0.2); ABS Eosinophils 0.1 10^3/ul (0-0.6); ABS Lymphocytes 1.3 10^3/ul (1.0-4.8); ABS Monocytes 0.6 10^3/ul (0-0.8); ABS Neutrophils 8.4 10^3/ul (1.5-7.7); Eosinophil % 1.1 %; Hematocrit 38 % (35-47); Hemoglobin 12.8 g/dL (12.0-16.0); Lymphocyte % 12.3 %; Mean Corpuscular HGB Conc 34 g/dL (31-36); Mean Corpuscular Hemoglobin 30 pg (27-31); Mean Corpuscular Volume 89 fL (80-97); Mean Platelet Volume 10.9 fL (7.4-10.4); Platelet Count 213 10^3/uL (150-450); Red Blood Count 4.31 10^6 /uL (3.70-4.87); Red Cell Distribution Width 14 % (10-15); White Blood Count 10.4 10^3/uL (3.5-10.8)
[2018-12-03 18:22] LABS: Activated Partial Thrombo Time 35.5 seconds (26.0-38.0); INR 0.99 (0.82-1.09)
--- OUTSIDE RECORDS SUMMARY | 2018-12-03 18:22 | XMS REPORT | Continuity of Care Document ---
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 treatment regimen in patients with HbA1c values consistently >8%. 30 Vitamin D deficiency has been defined by the [place] [employer] and an Endocrine Society practice guideline as a level of serum 25-OH vitamin D less than 20 ng/mL (1,2). The Endocrine Society went on to further define vitamin D insufficiency as a level between 21 and 29 ng/mL (2). 1. IOM ([place]). 2010. Dietary reference intakes for calcium and D. [place]: The National Academies Press. 2. Ilan MF, Yvon NC, Liam MARTINEZ, et al. Evaluation, treatment, and prevention of vitamin D deficiency: an Endocrine Society clinical practice guideline. JCEM. 2011 Nov; 96(7):1911-30. Performed at: RN - [facility] [address] [id number] Chip Drier: Lashay Bradshaw MD, Phone: [phone] 31 e87.6 32 Note: Persistent reduction for 3 months or more in an eGFR <60 mL/min/1.73 m2 defines CKD. Patients with eGFR values >/=60 mL/min/1.73 m2 may also have CKD if evidence of persistent proteinuria is present. The original MDRD equation for estimated GFR is not valid for patients less than 18 years of age. Additional information may be found at www.kdoqi.org. 33 E11.42,F32.89,H93.13 34 Elevated levels of HbA1c suggest the need for more aggressive treatment of glycemia. The [place] Diabetes [employer] recommends that a primary goal of therapy should be a HbA1c of <7% and that physicians should re-evaluate the treatment regimen in patients with HbA1c values consistently >8%. 35 Note: Persistent reduction for 3 months or more in an eGFR <60 mL/min/1.73 m2 defines CKD. Patients with eGFR values >/=60 mL/min/1.73 m2 may also have CKD if evidence of persistent proteinuria is present. The original MDRD equation for estimated GFR is not valid for patients less than 18 years of age. Additional information may be found at www.kdoqi.org. 36 Reference Guidelines*: Desirable: ........... < 200 mg/dL Borderline High: ..... 200-239 mg/dL High: ................ >=240 mg/dL * The National Cholesterol Education Program (NCEP) 37 Reference Guidelines*: Normal: ............. < 150 mg/dL Borderline High: .... 150-199 mg/dL High: ............... 200-499 mg/dL Very High: .......... > 500 mg/dL * Source: National Cholesterol Education Program (NCEP) 38 Reference Guidelines*: Low HDL: ..... < 40 mg/dL Normal: ..... 40-60 mg/dL Desirable: ... > 60 mg/dL *The National Cholesterol Education Program(NCEP) 39 Reference Guidelines*: Optimal:........... <100 mg/dL Near Optimal....... 100-129 mg/dL Borderline High.... 130-159 mg/dL High............... 160-189 mg/dL Very High.......... >=190 mg/dL * Source: National Cholesterol Education Program (NCEP) 40 Vitamin D deficiency has been defined by the [place] and an Endocrine Society practice guideline as a level of serum 25-OH vitamin D less than 20 ng/mL (1,2). The Endocrine Society went on to further define vitamin D insufficiency as a level between 21 and 29 ng/mL (2). 1. IOM ([place]). 2010. Dietary reference intakes for calcium and D. [place]: The National Academies Press. 2. Ilan MF, Yvon GAGNON, Liam MARTINEZ, et al. Evaluation, treatment, and prevention of vitamin D deficiency: an Endocrine Society clinical practice guideline. JCEM. 2010; 96(7):1911-30. Performed at: RN - [facility] [address] [id number] Chip Drier: Lashay Bradshaw MD, Phone: [phone] 41 OPERATION/PROCEDURE Upper endoscopy DIAGNOSIS: "ESOPHAGUS, BIOPSY": - [...] Signed Electronically signed Kandi HANNAH MD [id number] 42 Elevated levels of HbA1c suggest the need for more aggressive treatment of glycemia. The [place] Diabetes Association recommends that a primary goal of therapy should be a HbA1c of <7% and that physicians should re-evaluate the treatment regimen in patients with HbA1c values consistently >8%. 43 Note: Persistent reduction for 3 months or more in an eGFR <60 mL/min/1.73 m2 defines CKD. Patients with eGFR values >/=60 mL/min/1.73 m2 may also have CKD if evidence of persistent proteinuria is present. The original MDRD equation for estimated GFR is not valid for patients less than 18 years of age. Additional information may be found at www.kdoqi.org. 44 07/31/14 LAB.YES[facility] DUPLICATE 45 OPERATION/PROCEDURE Endometrial biopsy DIAGNOSIS: "ENDOMETRIAL BIOPSY": MIXED FRAGMENTS OF CILIATED METAPLASTIC AND INACTIVE ENDOMETRIUM, CONSISTENT WITH PERIMENOPAUSAL CLINICAL DYSFUNCTIONAL UTERINE BLEEDING. IVAN/winsome 1104 GROSS "ENDOMETRIAL BIOPSY". The specimen is received in an appropriately labeled container. This contains 0.25 mL of pink tissue admixed with mucus. Filtered and submitted in toto within a single cassette. IVAN/winsome MICROSCOPIC Sections reveal a mixture of ciliated metaplastic and inactive tubular glands in a spindled stroma. The glands are tubular, largely nonstratified, and mitotically inactive. PRE OPERATIVE DIAGNOSIS Post menopausal bleeding; thickened endometrium REVIEW CODE CODE: I PRATIBHA Reyes MD 09/07/09 46 CULTURE TO FOLLOW 47 COLONY COUNT ! >100,000 CFU/ml Organism 1 ! ENTEROCOCCUS GROUP D QUANTITY ! MANY RECOMMENDED THERAPY: ! AMPICILLIN OR AMPICILLIN AND GENTAMICIN. URINARY TRACT INFECTIONS: ! NITROFURANTOIN MAY BE USED FOR UTI'S. NOTE: ! ALL CEPHALOSPORINS ARE INEFFECTIVE. Organism 2 ! URETHRAL TIFFANY 48 CYTOLOGY SCREENER Screened by: NADER Mabry(ASCP) PAP: [...] QUESTIONNAIRE 05/22 PERTINENT CLINICAL HISTORY FOR PAP (COMPENSATION EXPERT) CYTOLOGY (Check all that apply): ? Post [...] means for detecting cervical dysplasia and carcinoma. JUAN CARLOS Zamora MD 09/02/09 49 Recent studies consider the lower limit of 32.0 ng/mL to be a threshold for optimal health. Seth GLASGOW. J Nutr. 2004;135(2):317-22. Performed at: RN - [facility] [address] [id number] Chip Drier: Pritesh Zarate MD 50 Performed at: RN - [facility] [address] [id number] Chip Drier: Pritesh Zarate MD Procedures Date Code Description Status 11/21/2018 75456 Radiology, Shoulder: Two Views (Sso) Completed 11/21/2018 61484 Asp./Injection major joint Completed 10/28/2018 02856 [employer]plant[employer] Heart Rhythm Completed Derived Data 10/14/2018 32064 Stress Test Interpre And Report Only Completed 10/14/2018 01001 Stress Test Physician Super Only Completed 10/14/2018 96013 Myocardial Imaging Tomographic Multiple Study AT Rest Completed Or Stress 10/03/2018 20198 Echocardiogram Complete Completed 09/24/2018 36005 [employer] Heart Rhythm Completed Derived Data 09/24/2018 32449 EKG-Tracing And Report Completed 09/22/2018 26166 Eye Exam New Patient Comprehensive Completed 08/11/2018 66837 EKG-Tracing And Report Completed 08/11/2018 95643 [employer] Heart Rhythm Completed Derived Data 04/18/2018 93541 Therapeutic, Prophylactic, Diagnostic Injection Completed Intra-Arterial 06/13/2017 [id number] Mammogram Completed 04/18/2016 51655 Colonoscopy Completed 04/18/2016 [id number] Colonoscopy Completed 04/12/2016 [id number] Colonoscopy Completed 05/11/2015 13400 EGD Completed 04/28/2015 76608 Remove Impacted Cerumen Completed 02/16/2010 15158 EKG Interpretation And Report Only Completed 09/15/2009 00408 EKG Interpretation And Report Only Completed 09/06/2009 05648 Endometrial Biopsy Completed 06/28/2008 15703 Colonoscopy Completed Encounters Type Date Location Provider Dx Diagnosis Office Visit 11/21/2018 Orthopaedic Office Kate Dalton M25.511 Pain in right 1:15p S., RPA shoulder M75.31 Calcific tendinitis of right shoulder Office Visit 10/28/2018 1:20p Cardiology Office Uriel, R06.02 Shortness of Marlyss B., PA breath I63.9 Cerebral infarction, unspecified I10 Essential (primary) hypertension E78.2 Mixed hyperlipidemia R42 Dizziness and giddiness Office Visit 09/24/2018 11:00a Cardiology Office Uriel, I63.9 Cerebral Marlyss B., PA infarction, unspecified 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, unsp R06.02 Shortness of breath E78.2 Mixed hyperlipidemia I10 Essential (primary) hypertension Office Visit 08/11/2018 11:15a Cardiology Office Ashwin Bliss, 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 E78.2 Mixed hyperlipidemia I10 Essential (primary) hypertension 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, unsp Office Visit 07/09/2018 1:30p Orthopaedic Office Estrada Reese, M25.512 Pain in left MD shoulder M19.012 Primary osteoarthritis, left shoulder Office Visit 07/04/2018 9:30a Primary Care Lloyd, 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 Leigh [facility] polyarthropathy W55.01xA Bitten by cat, initial encounter M25.512 Pain in left shoulder F43.20 Adjustment disorder, unspecified Office Visit 04/18/2018 2:30p Primary Care Lloyd, M54.81 Occipital Office Leigh [facility] neuralgia M54.2 Cervicalgia M06.4 Inflammatory polyarthropathy Office Visit 12/30/2017 11:30a Primary Care Lloyd, G47.00 Insomnia, Office Leigh [facility] unspecified M25.50 Pain in unspecified joint I10 Essential (primary) hypertension I63.9 Cerebral infarction, unspecified E78.5 Hyperlipidemia, unspecified Office Visit 10/03/2017 11:00a Primary Care Lloyd, I63.9 Cerebral Office Leigh [facility] infarction, unspecified I10 Essential (primary) hypertension K21.0 Gastro-esophageal reflux disease with esophagitis M54.5 Low back pain M62.830 Muscle spasm of back Office Visit 07/15/2017 11:00a Primary Care Verna Jade, I67.9 Cerebrovascular Office M.D. disease, unspecified I63.9 Cerebral infarction, unspecified Z79.899 Other watermaster (current) drug therapy E78.5 Hyperlipidemia, unspecified I10 Essential (primary) hypertension E55.9 Vitamin D deficiency, unspecified E87.6 Hypokalemia Office Visit 07/02/2017 8:40a Primary Care Verna Jade, I67.9 Cerebrovascular Office M.D. 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 Office Visit 05/30/2017 11:15a Primary Care Cutler, R20.2 Paresthesia of Office Leigh [facility] skin Z12.31 Encntr screen mammogram for malignant neoplasm of breast G47.62 Sleep related leg cramps Office Visit 01/16/2017 11:30a Primary Care Rosa Carcamo Z04.3 Encounter for exam Office REILLY Perez and observation following oth accident I10 Essential (primary) hypertension E11.42 Type 2 diabetes mellitus with diabetic polyneuropathy E03.9 Hypothyroidism, unspecified Z23 Encounter for immunization Office Visit 07/09/2016 1:00p Primary Care Rosa Carcamo E11.42 Type 2 diabetes Office REILLY Perez mellitus with diabetic polyneuropathy I10 Essential (primary) hypertension E78.5 Hyperlipidemia, unspecified E55.9 Vitamin D deficiency, unspecified E87.6 Hypokalemia E03.9 Hypothyroidism, unspecified R20.2 Paresthesia of skin M79.7 Fibromyalgia Office Visit 03/28/2016 2:30p MERCED Campos MD Z12.11 Encounter for screening for malignant neoplasm of colon K21.0 Gastro-esophageal reflux disease with esophagitis Office Visit 03/14/2016 9:00a Primary Care Rosa Carcamo E11.42 Type 2 diabetes Office REILLY Perez mellitus with diabetic polyneuropathy I10 Essential (primary) hypertension E78.5 Hyperlipidemia, unspecified E55.9 Vitamin D deficiency, unspecified E87.6 Hypokalemia E03.9 Hypothyroidism, unspecified R20.2 Paresthesia of skin M79.7 Fibromyalgia Office Visit 03/05/2016 11:30a Primary Care Rosa Carcamo E11.42 Type 2 diabetes Office REILLY Perez mellitus with diabetic polyneuropathy I10 Essential (primary) hypertension E78.5 Hyperlipidemia, unspecified Z12.11 Encounter for screening for malignant neoplasm of colon K21.9 Gastro-esophageal reflux disease without esophagitis F32.89 Other specified depressive episodes M79.7 Fibromyalgia H93.13 Tinnitus, bilateral R20.2 Paresthesia of skin M89.8x8 Other specified disorders of bone, other site Z12.31 Encntr screen mammogram for malignant neoplasm of breast Z23 Encounter for immunization Office Visit 05/25/2015 11:30a Rosa Celaya E11.42 Type 2 diabetes mellitus REILLY Perez with diabetic polyneuropathy I10 Essential (primary) hypertension E78.5 Hyperlipidemia, unspecified Z12.11 Encounter for screening for malignant neoplasm of colon K21.9 Gastro-esophageal reflux disease without esophagitis F32.8 Other depressive episodes M79.7 Fibromyalgia H93.13 Tinnitus, bilateral Office Visit 04/28/2015 3:00p Rosa Celaya E11.42 Type 2 diabetes mellitus REILLY Perez with diabetic polyneuropathy I10 Essential (primary) hypertension E78.5 Hyperlipidemia, unspecified Z12.11 Encounter for screening for malignant neoplasm of colon K21.9 Gastro-esophageal reflux disease without esophagitis F32.8 Other depressive episodes H61.22 Impacted cerumen, left ear Z23 Encounter for immunization Office Visit 12/28/2014 1:30p Junito Shelton MD 357.2 Polyneuropathy In Diabetes 278.00 Obesity Unspec 250.00 Diabetes Mellitus W/O Compl Type II Or Unspec Controlled 401.9 Hypertension Unspec 272.4 Hyperlipidemia Other Unspec Office Visit 09/20/2009 10:50a roll scale worker Office Balwinder Chase 627.1 Postmenopausal M.D. Bleeding Office Visit 09/06/2009 8:30a roll scale worker Office Balwinder Chase 627.1 Postmenopausal M.D. Bleeding Office Visit 08/30/2009 2:00p roll scale worker Office Balwinder Chase V72.31 Routine Supervisory Aide M.D. Examination 627.1 Postmenopausal Bleeding Office Visit 07/20/2008 9:45a Junito Shelton MD 401.1 Hypertension Benign 715.00 Osteoarthrosis Generalized Site Unspec 530.81 Esophageal Reflux Office Visit 04/21/2008 11:00a Junito Shelton MD 729.1 Myalgia & Myositis Unspec 401.1 Hypertension Benign 530.81 Esophageal Reflux V03.82 Streptococcus Pneumoniae Vaccination Spec Other Office Visit 11/19/2007 11:30a Junito Shelton MD 787.1 Heartburn 401.1 Hypertension Benign Plan of Treatment Future Appointment(s):12/22/2018 1:45 pm - Kate Dalton, [facility] at Orthopaedic Mwtrkx9305/01/2019 1:00 pm - Jarett Trevino PA at Cardiology Kaeeqx8409/24/2019 3:30 pm - Srinivasan Rubin MD at Ouod[place]ubquhi96/12/2019 - Kate Dalton, RPACM25.511 Pain in right gwhghomvY16.31 Calcific tendinitis of right shoulderAllComments:She has calcium deposits within the subacromial space consistent with calcific tendinitis. I offered her the option of steroid injection, physical therapy and/or a different anti- inflammatory. She opted for the injection. A separate note was dictated. She does not want to participate in a formal physical therapy program. She is not certain whether the diclofenac is helpful or not. I suggested she stop using it and see how she does. I would like to reevaluate her in four weeks, sooner with anyproblems or concerns. I advised her to use ice for the next few days.
--- OUTSIDE RECORDS SUMMARY | 2018-12-03 18:22 | XMS REPORT | Continuity of Care Document ---
:1950 External Reference #:[id number] Author Name Maurice Khan Care Team Providers Name Role Phone Leigh Desai RPA Primary Care Physician Unavailable Payers Date Identification Numbers Payment Provider Subscriber Effective: 2018 Policy Number: [id number] [employer] Michelle Klein PayID: [id number] [address] [place] [address] Advance Directives Type Date Description Status Comment Other Directive 07/22/2018 Health Care Proxy Current and Verified ALTERNATE --- RUBEN SUMNER,[address] [facility] [address] [place] [address] Problems Active Problems Provider Date Cerebrovascular accident Leigh Desai, PA Onset: 07/29/2018 Note: 05/2017, 07/2018, 08/2018 Essential hypertension Leigh Desai, PA Onset: 07/29/2018 Obstructive sleep apnea syndrome Leigh Desai, PA Onset: 07/29/2018 Gastroesophageal reflux disease Leigh Desai, PA Onset: 07/29/2018 Hyperlipidemia Leigh Desai, PA Onset: 07/29/2018 Arthroplasty of knee Leigh Desai, PA Onset: 07/29/2018 Note: bilateral 2013 Kidney stone Leigh Desai, PA Onset: 07/29/2018 Note: 2014 Degenerative joint disease involving multiple Leigh Desai, PA Onset: joints Note: hips, lumbar spine Chronic low back pain Leigh Desai, PA Onset: 07/29/2018 Note: DDD/DJD Inflammatory polyarthropathy Leigh Desai, PA Onset: 07/29/2018 Fibromyalgia Leigh Desai, PA Onset: 07/29/2018 Note: duloxetine Dysthymia Leigh Desai, PA Onset: 07/29/2018 Note: duloxetine Food allergy Leigh Desai, PA Onset: 07/29/2018 Note: peanuts, chocolate, nuts Multinodular goiter Leigh Desai, PA Onset: 08/11/2018 Bilateral age-related nuclear cataracts Leigh Desai, PA Onset: 2018 Dry eyes Leigh Desai, PA Onset: 09/30/2018 Calcific tendinitis of shoulder Leigh Desai, PA Onset: 11/24/2018 Note: right Family History Date Family Member(s) Observation Comments Father Heart Disease Father Diabetes Father CAD Mother Heart Disease Mother Diabetes Mother Colon Cancer Age 57yrs old Malignant tumor Mother Kidney Stones,Malignant tumor bladder,Renal Failure Syndrome esophagus,Malignant tumor urinary Social History Type Date Description Comments Sex Unknown Lives With Alone Diet Follows no dietary restrictions 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, 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 [employer] 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 Tobacco Use Start: Unknown Quit ~1974 ETOH Use Denies alcohol use Tobacco Use Start: Unknown End: Patient is a former smoker Quit 1973 Unknown Smoking Status Reviewed: 12/02/18 Patient is a former smoker Quit 1973 Exercise Type/Frequency Does not exercise Allergies, Adverse Reactions, Alerts Active Allergies Reaction Severity Comments Date Peanut Oil shortness of breath 07/29/2018 Chocolate Allergenic Extract shortness of breath 07/29/2018 Numb Nuts shortness of breath 07/29/2018 Medications Active Medications SIG Qnty Indications Ordering Date Provider Cyclobenzaprine HCL 1 by mouth three 270tabs Russ 10/30/2018 10mg times a day as Eagle, Tablets needed for muscle spasm Dexilant take 1 capsule by 90caps Russ 09/08/[address] mouth once daily MD Fco Brilinta 1 by mouth twice a Unknown 08/31/2018 60mg Tablets day per Shreya Casas MD Hydrocortisone Thin layer to arm 28.350gm L30.9 07/29/2018 2.5% and neck rash tid Fco Ointment Atenolol take 1 tablet by 90tabs I10 Russ 07/29/2018 25mg Tablets mouth once daily MD Fco Nortriptyline HCL take 1 to 2 Russ 07/29/2018 10mg capsules by mouth Eagle, Capsules at bedtime for headache Montelukast Sodium take 1 tablet by 90tabs Russ 07/29/2018 10mg mouth once daily Eagle, Tablets Duloxetine HCL take 1 capsule by 90caps Russ 07/29/2018 60mg Caps mouth once daily Eagle, DR Part Atorvastatin Calcium 1 by mouth every 90tabs Russ 07/29/2018 80mg day Eagle, Tablets Albuterol Sulfate 1 application 50units Russ 07/29/2018 every 4 hours as Eagle, (2.5mg/3ML) 0.083% needed Nebulizer History Medications Dexilant 1 by mouth every 30caps Russ Eagle 09/08/2018 - 30mg Capsules DR delisa ROSAS 09/08/2018 Diclofenac Sodium take 1 tablet Unknown 08/31/2018 - 75mg twice a day with 11/24/[address] reyes, per neurology Order Evaluation for Russ Eagle, 08/11/2018 - home/nursing care 12/02/2018 Vesicare 1 by mouth every 30tabs Russ Eagle 07/29/2018 - 10mg Tablets day 07/29/2018 Vascepa 1 by mouth twice 180caps Russ Eagle 07/29/2018 - 0.5gm Capsules a day 07/29/2018 Dexlansoprazole 60mg every day Russ Eagle 07/29/2018 - 09/12/2018 Lansoprazole one every day 28tabs Russ Eagle 07/29/2018 - 30mg Tablets 09/08/2018 Dispers Vitamin D3 Maximum 1 by mouth every 90caps Russ Eagle 2018 - Strength day 12/02/2018 5000Unit Capsules Cyclobenzaprine HCL 1 by mouth three 30tabs Russ Eagle 2018 - 10mg times a day 09/08/2018 Tablets Clopidogrel Bisulfate 1 by mouth every 90tabs Russ Eagle 2018 - day 09/01/2018 75mg Tablets Aspirin Childrens 4 tabs by mouth Russ Eagle 07/29/2018 - 81mg every day 12/02/2018 Chewtabs Hydroxyzine HCL 1-2 tabs by mouth Lalitha Martell, 06/24/2018 - 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 04/12/2011 - 5-325mg Tablets 07/29/2018 Voltaren 1 po bid with 60tabs Tom Dimas M.D. 01/24/2011 - 75mg Tablets DR food 07/29/2018 Folic Acid 1 by mouth every Leia Cabrera, - 1mg Tablets day 12/02/2018 Methotrexate 5 tabs by mouth Leia Cabrera, - 2.5mg every week 12/02/2018 Tablets Medications Administered in Office Medication SIG Qnty Indications Ordering Provider Date Depomedrol 80MG Tom Dimas M.D. 02/07/2012 Injection Depomedrol 80MG Tom Dimas M.D. 02/07/2012 Injection Depdiliprol 80MG Tom Dimas M.D. 10/17/2011 Injection Depdiliprol 80MG Tom Dimas M.D. 10/17/2011 Injection Depomedrol 80MG Keely Hendrix RPA-Jaime 04/12/2011 Injection Depomedrol 80MG Tom Dimas M.D. 02/14/2011 Injection Dellrol 80MG Tom Dimas M.D. 10/16/2010 Injection Depomedrol 80MG Keely Hendrix RPA-Jaime 06/06/2010 Injection Depomedrol 80MG Keely Hendrix RPA-C 02/07/2010 Injection Depomedrol 40MG Maggie Gonzalez PA 10/27/2009 Injection Depomedrol 40MG Bhanu Dugan, 08/23/2009 Injection R.S.A.-O Depomedrol 40MG Bhanu Dugan, 08/02/2009 Injection R.S.A.-O Immunizations CPT Code Status Date Vaccine Lot # [id number] Given 09/22/2018 Pneumococcal Conjugate Vaccine 13 Valent For Intramuscular Use Vital Signs Date Vital Result Comment 12/02/2018 1:58pm Height 62 inches 5'2" Weight 172.44 lb Heart Rate 54 /min BP Systolic Sitting 130 mmHg BP Diastolic Sitting 76 mmHg O2 % BldC Oximetry 97 % BMI (Body Mass Index) 31.5 kg/m2 09/08/2018 1:11pm Height 62 inches 5'2" Weight 178.44 lb Heart Rate 72 /min BP Systolic Sitting 138 mmHg BP Diastolic Sitting 70 mmHg O2 % BldC Oximetry 94 % BMI (Body Mass Index) 32.6 kg/m2 07/29/2018 2:19pm Height 62 inches 5'2" Weight 177.00 lb Heart Rate 76 /min BP Systolic 148 mmHg BP Diastolic 76 mmHg O2 % BldC Oximetry 97 % BMI (Body Mass Index) 32.4 kg/m2 Procedures Date Code Description Status 09/22/2018 [id number] Diabetic Retinal Eye Exam Completed 06/13/2017 [id number] Mammogram Completed 04/18/2016 [id number] Colonoscopy Completed 02/07/201232546 Inject/Drain Joint/Bursa Major W/O US Completed 02/07/2012 60871 Xray Knee 3 Views Completed 02/07/2012 57872 Xray Knee 3 Views Completed 02/07/2012 30768 Rad Exam; Knee, Ap&L Completed 02/07/201289391 Inject/Drain Joint/Bursa Major W/O US Completed 02/07/2012 29153 Rad Exam; Knee, Ap&L Completed 10/17/201167911 Inject/Drain Joint/Bursa Major W/O US Completed 10/17/201162464 Inject/Drain Joint/Bursa Major W/O US Completed 04/12/2011 78219 Xray Knee 3 Views Completed 04/12/2011 17694 Rad Exam; Knee, Ap&L Completed 04/12/201109668 Inject/Drain Joint/Bursa Major W/O US Completed 02/14/201145744 Inject/Drain Joint/Bursa Major W/O US Completed 10/16/2010 98802 Rad Exam; Both Knees, Standing Ap Completed 10/16/201001526 Inject/Drain Joint/Bursa Major W/O US Completed 10/16/201083453 Inject/Drain Joint/Bursa Major W/O US Completed 06/06/201052613 Inject/Drain Joint/Bursa Major W/O US Completed 06/06/201013529 Inject/Drain Joint/Bursa Major W/O US Completed 02/07/2010 58907 Rad Exam; Both Knees, Standing Ap Completed 02/07/201034464 Inject/Drain Joint/Bursa Major W/O US Completed 02/07/201031408 Inject/Drain Joint/Bursa Major W/O US Completed 10/27/2009 Inject/Drain Joint/Bursa Major W/O US Completed 08/23/2009 23341 Rad Shoulder Comp, Min. 2 Views Completed 08/23/2009 59274 Rad Shoulder Comp, Min. 2 Views Completed 08/23/2009 Inject/Drain Joint/Bursa Major W/O US Completed 08/23/2009 Inject/Drain Joint/Bursa Major W/O US Completed 08/02/2009 67563 Rad Exam; Both Knees, Standing Ap Completed 08/02/2009 Inject/Drain Joint/Bursa Major W/O US Completed 08/02/2009 Inject/Drain Joint/Bursa Major W/O US Completed Encounters Type Date Location Provider Dx Diagnosis Office Visit 09/08/2018 [facility] Leigh Desai, I63.9 Cerebral 1:00p PA infarction, unspecified E04.2 Nontoxic multinodular goiter G47.33 Obstructive sleep apnea (adult) (pediatric) Office Visit 07/29/2018 2:00p [facility] Primary Leigh I63.9 Cerebral Care Lloyd, PA infarction, unspecified E78.5 Hyperlipidemia, unspecified H53.9 Unspecified visual disturbance I10 Essential (primary) hypertension L30.9 Dermatitis, unspecified E04.1 Nontoxic single thyroid nodule M06.4 Inflammatory polyarthropathy Office Visit 02/07/2012 2:15p [facility]opedic Sintia Vega.96 [facility] Val Unspec Genlzd Or C.M.A. Localized Lower Leg 716.96 Arthropathy Unspec Lower Leg Office Visit 10/17/2011 8:00a Orthopedic Sintia Vega.Ирина [facility] M.Dada Unspec Genlzd Or C.M.A. Localized Lower Leg 716.96 Arthropathy Unspec Lower Leg Office Visit 04/12/2011 1:30p Orthopedic María Fay.Ирина Arthropathy Services Of RPA-C Unspec Lower Leg C.M.A. Office Visit 02/14/2011 9:30a Arnoldo Arceo [facility] M.Dada Unspec Lower Leg C.M.A. Office Visit 01/24/2011 8:15a Arnoldo Arceo Arthropathy [facility] M.Dada Unspec Lower Leg C.M.A. Office Visit 10/16/2010 9:00a Orthopedic Tom Dimas, 716.96 Arthropathy [facility] Val Unspec Lower Leg C.M.A. Office Visit 02/07/2010 10:00a Orthopedic Keely Hendrix 716.96 Arthropathy Services Of RPA-C Unspec Lower Leg C.M.A. Office Visit 10/27/2009 1:00p Orthopedic Maggie Gonzalez PA 716.96 Arthropathy Services Of Unspec Lower Leg C.M.A. 719.46 Pain Joint Lower Leg Office Visit 08/23/2009 Orthopedic Ritchie, 726.2 Shoulder Region 10:30a Services Of Bhanu, Affections Other C.M.A. R.S.A.-O Not Elsewhere Class 716.91 Arthropathy Unspec Shoulder Region Office Visit 08/02/2009 Orthopedic Ritchie, 716.96 Arthropathy 1:00p Services Of Bhanu Unspec Lower Leg C.M.A. R.S.A.-O Plan of Treatment Future Appointment(s):02/24/2019 2:00 pm - SHABBIR Reyes at [facility] Primary Care12/02/2018 - Leigh Desai, PAI63.9 Cerebral infarction, [id number] Repeated falls
[2018-12-03 18:31] LABS: Albumin 4.3 g/dL (3.2-5.2); Albumin/Globulin Ratio 1.4 (1-3); BUN/Creatinine Ratio 30.5 (8-20); Calcium 9.8 mg/dL (8.6-10.3); EGFR African American 84.4 (>60); EGFR Non-African American 69.7 (>60); HDL Cholesterol 48.2 mg/dL; Potassium 4.1 mmol/L (3.5-5.0); Total Bilirubin 0.5 mg/dL (0.2-1.0); Total Protein 7.3 g/dL (6.4-8.9)
[2018-12-03] MEDS ORDERED: Acetaminophen TAB* 325 MG PO PRN (19:29)
[2018-12-03] MEDS ORDERED: Cyclobenzaprine TAB* 10 MG PO PRN (19:32)
[2018-12-03] MEDS: NS 0.9% 1000 ML** 1,000 ML IV SCH (21:45)
[2018-12-03] MEDS: Aspirin 81 mg CHEW TAB* 81 MG TAB.CHEW PO SCH (21:47)
[2018-12-03] MEDS: CMCS:Ticagrelor (NF) 60 MG TAB PO SCH (21:47)
[2018-12-03] MEDS: Nortriptyline CAP* 10 MG PO SCH (21:47)
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
[2018-12-04 06:39] LABS: ABS Eosinophils 0.1 10^3/ul (0-0.6); ABS Lymphocytes 1.3 10^3/ul (1.0-4.8); ABS Monocytes 0.5 10^3/ul (0-0.8); Eosinophil % 1.1 %; Hematocrit 34 % (35-47); Hemoglobin 11.8 g/dL (12.0-16.0); Lymphocyte % 16.4 %; Mean Corpuscular HGB Conc 34 g/dL (31-36); Mean Corpuscular Hemoglobin 30 pg (27-31); Mean Corpuscular Volume 89 fL (80-97); Mean Platelet Volume 10.8 fL (7.4-10.4); Platelet Count 169 10^3/uL (150-450); Red Blood Count 3.89 10^6 /uL (3.70-4.87); Red Cell Distribution Width 14 % (10-15); White Blood Count 7.9 10^3/uL (3.5-10.8)
[2018-12-04 07:01] LABS: BUN/Creatinine Ratio 23.5 (8-20); Calcium 9.1 mg/dL (8.6-10.3); EGFR African American 104.7 (>60); EGFR Non-African American 86.6 (>60); Potassium 3.8 mmol/L (3.5-5.0)
[2018-12-04] MEDS ORDERED: Atenolol TAB* 25 MG PO SCH (09:00)
[2018-12-04] MEDS: Aspirin 81 mg CHEW TAB* 81 MG TAB.CHEW PO SCH (09:33)
[2018-12-04] MEDS: Montelukast Sodium TAB* 10 MG PO SCH (09:33)
[2018-12-04] MEDS: CMCS:Ticagrelor (NF) 60 MG TAB PO SCH ×2 (09:33→22:01)
[2018-12-04] MEDS: Atorvastatin* 80 MG TAB PO SCH (09:33)
--- NOTE | 2018-12-04 12:05 | ECHO ---
*[facility]* [place] [address] Fax #: [phone] Transthoracic Echocardiogram Patient: Michelle Klein : 1950 Study Date: 12/04/2018 Age: 68 Gender: F HR: 66 bpm Height: 64 in /162.6 cm BSA: 1.86 m^2 Weight: 177.6 lb /80.7 kg BMI: 30.6 kg/m^2 *Water Filtration Technician: * Yvette Shipman [facility] *Referring Physician: * Katy Vincent *Reading Physician: * Jann Mishra MD Indications: TIA. History: Cerebrovascular accident. Transient ischemic attack. Asthma. Conclusions Summary: - Left ventricle: There is mild concentric hypertrophy. Systolic function is normal. The estimated ejection fraction is 60-65%. Left ventricular diastolic function parameters are indeterminate. - Atrial septum: A PFO is not demonstrated by color Doppler. Patient refused bubble study. - Mitral valve: There is trace regurgitation. Study data: Transthoracic echocardiogram. Procedure: Transthoracic echocardiography was performed. Image quality was fair. A bubble study was not performed, patient refused. Complete 2D, spectral Doppler, and color flow Doppler. Location: Bedside. Patient status: Inpatient. Patient room number: 449-2. No prior study is available for comparison. Rhythm: Normal sinus rhythm. Findings Left ventricle: The cavity size is normal. There is mild concentric hypertrophy. Systolic function is normal. The estimated ejection fraction is 60-65%. Wall motion is normal; there are no regional wall motion abnormalities. Left ventricular diastolic function parameters are indeterminate. Right ventricle: The cavity size is normal. Systolic function is normal. Left atrium: The atrium is mildly dilated. Right atrium: The atrium is normal in size. Atrial septum: A PFO is not demonstrated by color Doppler. Patient refused bubble study. Mitral valve: The leaflets are mildly thickened. There is no evidence of stenosis. There is trace regurgitation. Aortic valve: The valve is trileaflet. The leaflets are normal thickness. There is no evidence of stenosis. There is no significant regurgitation. Tricuspid valve: The leaflets are normal thickness. There is no evidence of stenosis. There is physiologic regurgitation. Pulmonic valve: The leaflets are normal thickness. There is no evidence of stenosis. There is trace regurgitation. Aorta: Ascending aorta: The ascending aorta is appears normal. The aortic root appears normal. The aortic arch appears normal. Pericardium: There is no significant pericardial effusion. Pulmonary arteries: The main pulmonary artery is normal-sized. Systolic pressure can not be accurately estimated. Systemic veins: Inferior vena cava: The vessel is normal in size. There is (>= 50%) respiratory change in the IVC dimension. Measurements Left ventricle Value Ref Right atrium continued Value Ref MISHA, LAX 4.3 cm 3.8 - 5.2 SI dim, ES, A4C 4.9 cm 3.4 - 5.3 ESD, LAX 2.7 cm 2.2 - 3.5 Estimated RAP 3 mm Hg --------- FS, LAX 37 % - 45 PW, ED, LAX (H) 1.2 cm 0.6 - 0.9 Aortic valve Value Ref FS 37 % - 45 Fannie diam, ED 1.7 cm --------- PW, ED (H) 1.2 cm 0.6 - 0.9 Peak v, S 1.28 m/sec --------- E', lat fannie, TDI 10.6 cm/sec >=10.0 VTI, S 28.7 cm -- ------- E/e', lat fannie, 6 Mean grad, S 4.0 mm Hg ----- ---- TDI Peak grad, S 7.0 mm Hg --------- E', med fannie, TDI 7.2 cm/sec >=7.0 LVOT/AV, VTI ratio 0.73 -- ------- E/e', med fannie, 9 TDI Mitral valve Value Ref E', avg, TDI 8.9 cm/sec Peak E 0.62 m/sec ----- ---- E/e', avg, TDI 7 <=14 Peak A 0.63 m/sec -- ------- Decel time 254 ms --------- LVOT Value Ref Peak E/A ratio 1 --------- Peak blaze, S 0.99 m/sec VTI, S 21.0 cm Pulmonic valve Value Ref Mean grad, S 2 mm Hg Peak v, S 0.83 m/sec --------- Peak grad, S 3.0 mm Hg --------- Ventricular septum Value Ref IVS, ED (H) 1.2 cm 0.6 - 0.9 Aortic root Value Ref Root diam 2.9 cm <4.0 Right ventricle Value Ref MISHA, LAX 2.8 cm Ascending aorta Value Ref MISHA minor ax, (H) 3.9 cm 1.9 - 3.5 AAo AP diam, S 3.1 cm --------- A4C mid Aortic arch Value Ref Left atrium Value Ref Arch diam 2.2 cm --------- AP dim, ES (H) 4.20 cm 2.70 - 3.80 Decending aorta Value Ref ML dim, A4C 3.7 cm Mark peak blaze 0.85 m/sec --------- SI dim, A4C 5.2 cm Vol/bsa, ES, 1-p 22 ml/m^2 11 - 40 Inferior vena cava Value Ref A4C Diam 2.0 cm --------- Vol/bsa, ES, A/L 34 ml/m^2 16 - 34 Right atrium Value Ref SI dim, ES 4.9 cm 3.4 - 5.3 ML dim, ES, A4C 3.9 cm 2.6 - 4.4 Legend: (L) and (H) ignacio values outside specified reference range. Prepared and electronically signed by Jann Mishra MD 12/04/2018 12:05
[2018-12-04] MEDS: NS 0.9% 1000 ML** 1,000 ML IV SCH (13:26)
--- NOTE | 2018-12-04 16:49 | PN ---
Subjective Date of Service: 12/04/18 Interval History: Patient seen and examined. States she is feeling "OK" with no new complaints. Explained that all records were received from [facility] and would be evaluated by myself and Dr. Saunders. Also explained that would likely be further testing today to which she states she is agreeable. She denies any fever or chills, no headache, no diplopia, no paresthesias or focal weakness. She is eager to be discharged. Objective Active Medications: Acetaminophen (Tylenol Tab*) 650 mg PO Q4H PRN PRN Reason: FEVER/PAIN Aspirin (Aspirin 81 Mg Chew Tab*) 81 mg PO DAILY [facility] Last Admin: 12/04/18 09:33 Dose: 81 mg Atorvastatin Calcium (Lipitor*) 80 mg PO DAILY [facility] Last Admin: 12/04/18 09:33 Dose: 80 mg Cyclobenzaprine HCl (Flexeril Tab*) 5 mg PO TID PRN PRN Reason: PAIN Sodium Chloride (Ns 0.9% 1000 Ml) 1,000 mls @ 75 mls/hr IV PER RATE [facility] Last Admin: 12/04/18 13:26 Dose: 75 mls/hr Montelukast Sodium (Singulair Tab*) 10 mg PO QAM [facility] Last Admin: 12/04/18 09:33 Dose: 10 mg Nortriptyline HCl (Pamelor Cap*) 10 mg PO BEDTIME [facility] Last Admin: 12/03/18 21:47 Dose: 10 mg Ticagrelor (Brilinta (Nf)) 60 mg PO BID [facility] Last Admin: 12/04/18 09:33 Dose: 60 mg Vital Signs - 8 hr 12/04/18 12/04/18 11:11 15:26 Temperature 97.9 F 97.4 F Pulse Rate 64 74 Respiratory 16 18 Rate Blood Pressure 118/69 131/63 (mmHg) O2 Sat by Pulse 97 97 Oximetry Oxygen Devices in Use Now: None Appearance: alert, NAD Eyes: No Scleral Icterus, PERRLA Ears/Nose/Mouth/Throat: NL Teeth, Lips, Gums Neck: Trachea Midline Respiratory: Symmetrical Chest Expansion and Respiratory Effort, Clear to Auscultation Cardiovascular: NL Sounds; No Murmurs; No JVD, RRR, No Edema Abdominal: NL Sounds; No Tenderness; No Distention Extremities: No Edema, No Clubbing, Cyanosis Skin: No Rash or Ulcers Neurological: Alert and Oriented x 3, NL Sensation, NL Muscle Strength and Tone Nutrition: Taking PO's Result Diagrams: 12/04/18 05:58 12/04/18 05:58 Diagnostic Imaging: *[facility]* [place] [address] Fax #: [phone] Transthoracic Echocardiogram Patient: Domenic Benitez : 1950 Study Date: 12/04/2018 Age: 68 Gender: F HR: 66 bpm Height: 64 in /162.6 cm BSA: 1.86 m^2 Weight: 177.6 lb /80.7 kg BMI: 30.6 kg/m^2 *Booker: * Yvette Shipman RD *Referring Physician: * Katy Vincent *Reading Physician: aJnn Joel MD Indications: TIA. History: Cerebrovascular accident. Transient ischemic attack. Asthma. Conclusions Summary: - Left ventricle: There is mild concentric hypertrophy. Systolic function is normal. The estimated ejection fraction is 60-65%. Left ventricular diastolic function parameters are indeterminate. - Atrial septum: A PFO is not demonstrated by color Doppler. Patient refused bubble study. - Mitral valve: There is trace regurgitation. Study data: Transthoracic echocardiogram. Procedure: Transthoracic echocardiography was performed. Image quality was fair. A bubble study was not performed, patient refused. Complete 2D, spectral Doppler, and color flow Doppler. Location: Bedside. Patient status: Inpatient. Patient room number: 449-2. No prior study is available for comparison. Rhythm: Normal sinus rhythm. Patient Name: DOMENIC BENITEZ Medical Record#: [id number] Ordering Physician: Dorian Loyola MD Acct.#: [id number] : 1950 Age: 68 Sex: F Location: EMERGENCY DEPARTMENT Exam Date: 12/03/181729 ADM Status: PRE ER Order Information: CT BRAIN WO Accession Number: [id number] CPT: 40578 INDICATION: Slurred speech. COMPARISON: There are no relevant prior studies available for comparison. TECHNIQUE: Contiguous axial sections of the brain were obtained from the skull base to the vertex without contrast. FINDINGS: There is no hemorrhagic focus, mass effect or midline shift. There are old bilateral basal ganglia infarcts. No new loss of dolan-white matter differentiation or cerebral edema. Periventricular hypoattenuation, without mass effect, is nonspecific. There is ex vacuo dilatation of the left frontal horn. The basal cisterns are patent. There is no abnormal extra-axial collection. No dense vessel is identified. The globes and orbits are symmetric. Paranasal sinuses and mastoid air cells are fairly well aerated. IMPRESSION: 1. No acute intracranial abnormality by CT. 2. Old bilateral basal ganglia infarcts. 3. Mild chronic small vessel slightly disease is likely. <Electronically signed by Joe Tomlinson MD in OV> 12/03/181745 Dictated By: Joe Tomlinson MD Dictated Date/Time: 12/03/181745 Transcribed Date/Time: 12/03/181739 Copy to: Assess/Plan/Problems-Billing Assessment: This is a 68 year old female with complex neurologic history including multiple strokes since 2017 that presented to the ER with complaints of dysarthria and RLE weakness. - Patient Problems (1) CVA (cerebral vascular accident) Code(s): I63.9 - CEREBRAL INFARCTION, UNSPECIFIED SNOMED Code(s): 609471000 Comment: - [facility] Records obtained, patient had right frontal ischemic CVA 05/2017 ; right frontal recurrent CVA 07/2018; left occipital and temporoparietal and posterior right parietal 08/2018 - CTA in August showed severe narrowing at right M1 segment and moderate narrowing of the left M1 and M2 segments - Discussed with Dr. Saunders, will proceed with MRI/MRA head and neck to eval for evidence of new stroke - Previous DAVID and loop recorder documentation does not appear to show cardioembolic events, today's TTE with no acute pathology. Patient refused bubble study, however, no PFO was demonstrated on previous ECHO from [facility] - Will continue daily ASA. Will defer to neurology on utility of Brilinta vs plavix - continue statin - PT/OT - Also had same symptoms on November 12, now presenting again with same (2) Fibromyalgia Code(s): M79.7 - FIBROMYALGIA SNOMED Code(s): 110757225 Comment: - continue pamelor and flexeril (3) Hyperlipidemia Code(s): E78.5 - HYPERLIPIDEMIA, UNSPECIFIED SNOMED Code(s): 45096272 Comment: - Continue statin (4) DVT prophylaxis Code(s): Z29.9 - ENCOUNTER FOR PROPHYLACTIC MEASURES, UNSPECIFIED SNOMED Code( s): 944047716 Comment: - SCDs and ambulate (5) DNR (do not resuscitate) Current Visit: Yes Status: Acute Status and Disposition: Inpatient
[2018-12-04 16:57] LABS: C Reactive Protein 3.13 mg/L (<8.01)
[2018-12-04 20:02] LABS: Erythrocyte Sed Rate 17 mm/Hr (0-29)
--- NOTE | 2018-12-04 21:41 | CONS ---
NEUROLOGY CONSULTATION NOTE: DATE OF CONSULT: 12/04/18 CONSULTING PROVIDER: Katy Vincent NP REASON FOR CONSULT: Transient episode of right-sided weakness. CHIEF COMPLAINT: The patient stated that "I am not quite sure why I am in the hospital." I personally spoke with her sister Star for further information. HISTORY OF PRESENT ILLNESS: Ms. Michelle Klein is a 68-year-old right-handed female with multiple ischemic nonhemorrhagic strokes over the last 6 months. According to the the patient's sister Star, the patient had symptoms initially of right-sided weakness in May and in July of 2018. She also had left- sided weakness in August of 2018, lastly right-sided weakness early November of 2018. She has been hospitalized at [facility] twice, one on 07/22/18 and another hospitalization in August 2018. The patient had left against medical advice in July 2018. She was placed on aspirin and Plavix and was diagnosed with an ischemic stroke involving the right parietal lobe. In August 2018, the patient was admitted and was transferred to a rehabilitation facility after a left fritz radiata punctate, left occipital and temporal parietal cryptogenic stroke. She had a loop recorder implanted after the first stroke in July and interrogated in August and there was no evidence of atrial arrhythmia. The patient was switched from aspirin/Plavix, which she was started on in July, to Brilinta in August. Her most recent MRI of the brain completed on 08/29/18 showed small focus of restricted diffusion within the left fritz radiata extending superiorly to the centrum semiovale consistent with a small acute stroke. There was also evolving infarct within the posterior right parietal lobe seen on prior MRI from 07/22/18. She had multiple CTAs with most recent CTA completed on 08/28/18 that showed severe narrowing of the right M1 segment and focal mild narrowing of the right M2 segment of the MCA. There is also focal moderate narrowing of the left M1 segment and moderate narrowing in the left M2 segment of the MCA. There is also moderate narrowing of the left A2 segment. There is focal narrowing of the bilateral P2 segments. The patient has been taking Brilinta regularly. Today, the patient stated that she is extremely frustrated from all these symptoms that he is having. Apparently, yesterday, the patient was walking her dog. She walked her dog to the office machine servicer. The dog unfortunately was let loose and escaped the patient and the patient ran after the dog. When she arrived at the vet's office, the patient was slurring her speech and complaining of right-sided weakness. The patient contacted her sister, and her sister immediately contacted EMS to bring her back to the hospital. The patient had no seizure-like activity. The patient stated that yes, her leg gave out on the right side, but she was running prior this event. Currently, the patient is asymptomatic. Of note, the patient has baseline dysarthria and numbness on the right hand. NIH stroke scale today is 1 for chronic dysarthria. PAST MEDICAL HISTORY: Hypertension, asthma, sleep apnea, arthritis, polyneuropathy, depression, headache, GERD, low back pain, and osteoporosis. PAST SURGICAL HISTORY: Colonoscopy, tubal ligation, tonsillectomy, joint replacement. MEDICATIONS: 1. Montelukast 10 mg p.o. q.a.m. 2. Atenolol 25 mg p.o. daily. 3. Nortriptyline 10 to 20 mg p.o. at bedtime. 4. Dexilant 60 mg p.o. daily. 5. Atorvastatin 80 mg p.o. daily. 6. Ticagrelor 60 mg p.o. b.i.d. 7. Cyclobenzaprine 10 mg p.o. t.i.d. 8. Diclofenac 75 mg p.o. b.i.d. 9. Duloxetine 60 mg p.o. daily. ALLERGIES: Chocolate flavor and peanut. FAMILY HISTORY: Cancer in the mother and diabetes in both parents. No family history of stroke or seizures. SOCIAL HISTORY: She is . She quit smoking about 4 to 5 years ago. She denied any alcohol use. REVIEW OF SYSTEMS: A 14-point review of systems was obtained and otherwise negative, except for what is mentioned in the HPI. PHYSICAL EXAM: Vitals: Temperature of 97.9, pulse of 64, respiratory rate of 16, oxygen saturation 97, blood pressure 118/69. The patient presented to [facility] with blood pressure of 109/63. General: Chronically ill- appearing, obese female, in no acute distress. Head: Atraumatic, normocephalic. Eyes: Conjunctive/corneas are clear. Neck: Supple and symmetrical with no carotid bruit. No lymphadenopathy. Cardiac: Regular rate and rhythm with normal S1, S2. Respiratory: Clear to auscultation bilaterally with no wheezing or rhonchi. Extremities: Normal range of motion. No hammertoes or high arches. Skin: No skin lesions or laceration. Psych: Flat affect, depressed mood. Easy to establish rapport. Neurological Examination: Mental Status: Awake, alert, and oriented to person , place, time, and general circumstances. She has poor eye contact. She has mild psychomotor slowing. She has spastic dysarthria at baseline. Cranial Nerves: Pupils equal, round, reactive to light. Extraocular muscles intact. Normal confrontation testing. No ptosis or nystagmus. Normal sensation to light touch in the face bilaterally. No facial droop. Tongue is symmetric and midline with no atrophy or fasciculation. Motor examination: Normal movements with pronator drift. She has 4/5 strength in the right upper and lower extremity with 5/5 strength in the left upper and lower extremity. Reflexes are 2+ on the right biceps, triceps, brachioradialis, and knee with mute plantar response on the right. 1 ankle reflex on the right. Otherwise, there is a 1+ reflex on the left biceps, triceps, brachioradialis, knee, and ankle. Mana sign is positive on the right. Sensation is intact to light touch throughout. Coordination: Normal finger-to- nose and [id number] testing. Gait: Wide-based gait. No ataxia. DIAGNOSTIC STUDIES/LAB DATA: Labs, imaging, and another diagnostic testing: WBC 7.9, hemoglobin of 11, hematocrit of 34, platelet count of 169. INR 0.99. Sodium of 142, potassium 3.8, chloride 112, BUN of 25. BUN and creatinine ratio of 30, glucose of 101, alkaline phosphatase of 155, LDL of 89, total cholesterol of 161. CT head without contrast was personally reviewed. There was no evidence of large intracranial abnormality, hemorrhage, or stroke. There are multifocal areas of hypodensity in the right basal ganglia, left basal ganglia extending in the caudate consistent with previous lacunar infarcts. ASSESSMENT AND RECOMMENDATION: Ms. Michelle Klein is a 68-year-old female, who has severe intracranial stenosis involving bilateral middle cerebral arteries and posterior cerebral artery, who has had at least 2 confirmed subcortical ischemic nonhemorrhagic strokes over the past 4 months, who presented to [facility] with a transient episode of right-sided weakness and worsening dysarthria. On neurological examination, the patient reported feeling back to normal with baseline chronic spastic dysarthria. She denied any new focal deficits. The patient exhibited signs depression, frustration regarding her medical condition and most of all inability to operate vehicle. Transient right-sided weakness with worsening dysarthria - I suspect she either has a small new lacunar subcortical stroke involving left lenticulostriate branches; or worsening of her previous stroke in the setting of dehydration, infection, or mild hypotension. The patient was started on aspirin yesterday. Continue Brilinta and aspirin for stroke. This is off label and there are no known studies showing the effectiveness of both therapies. However, Brilinta was started at the [facility] stroke [place]) after her second stroke in August. Her current NIH is 1. She is deemed not a candidate for IV tPA or mechanical thrombectomy. I ordered MRI of the brain, MRA of the head, and MRA of the neck without contrast to evaluate for any evidence of new stroke. The patient is extremely high risk given her small vessel disease. She also at high risk for intracranial hemorrhage given the ongoing antiplatelet therapy. The patient is currently on diclofenac (Voltaren) as an outpatient, which puts her at risk for increase in stroke or cardiovascular events. I would recommend not to continue this medication as an outpatient. Please order an EEG to confirm that she does not have any possible seizures causing some of her symptoms. We interrogated loop recorder and did not find any evidence of atrial fibrillation. Therefore, anticoagulation therapy is not indicated. She has had a DAVID done on 07/22/18 and there is no reason to repeat and therefore we proceeded with transthoracic echo which was unremarkable. There was no PFO seen. Please continue her statin therapy. Please continue neuro checks every 4 hours. I continue to encouraged her not to drive at this current time and to seek consultation by her outpatient neurologist and agricultural equipment salesperson for further evaluation. I will continue to follow. [id number]/[facility] #: [id number] DAREN
[2018-12-04] MEDS: Nortriptyline CAP* 10 MG PO SCH (22:00)
[2018-12-05] MEDS ORDERED: Nortriptyline CAP* 10 MG PO ONE (01:36)
[2018-12-05] MEDS: Atorvastatin* 80 MG TAB PO SCH (09:14)
[2018-12-05] MEDS: Montelukast Sodium TAB* 10 MG PO SCH (09:14)
[2018-12-05] MEDS: CMCS:Ticagrelor (NF) 60 MG TAB PO SCH (09:14)
[2018-12-05] MEDS: Aspirin 81 mg CHEW TAB* 81 MG TAB.CHEW PO SCH (09:14)
[2018-12-05 12:44] VITALS: BP 134/65
--- NOTE | 2018-12-05 15:26 | PN ---
Subjective Date of Service: 12/05/18 Length of Stay: 2 Days Neurology is following for TIA. Interval History: The patient is feeling sad and slightly depressed. She shares with me today that her sisters want her to sell her house and move into an assisted facility. The patient does not want to do that. She wants to stay independent and hoping she can drive again. She is slowly paying off her bills and would like to stay in her own home. She plans to discuss this further with her sisters. Today, the patient stated the symptoms she had on admission had resolved. She no longer has right leg weakness. Her slurred speech is the same as it has always been since the previous stroke. She denied any new weakness or paresthesia. MRI brain without contrast completed on 12/04/2018: There is a punctate late acute infarct in the centrum semiovale of the right frontal lobe. There is no associated mass effect or hemorrhage. Several old lacunar infarct are seen in the bilateral basal ganglia and centrum semiovale. MRA head 12/04/2018: there are severe stenosis along the left A2, and moderate stenosis along the right M1 segment. MRA neck 12/04/2018 : no acute occlusive disease or significant stenosis. ESR: 17 CRP: 3.13 Vitamin B12: 268 Review of Systems: Denied CP, SOB, or palpitations. Objective Active Medications: Acetaminophen (Tylenol Tab*) 650 mg PO Q4H PRN PRN Reason: FEVER/PAIN Aspirin (Aspirin 81 Mg Chew Tab*) 81 mg PO DAILY [facility] Last Admin: 12/05/18 09:14 Dose: 81 mg Atorvastatin Calcium (Lipitor*) 80 mg PO DAILY [facility] Last Admin: 12/05/18 09:14 Dose: 80 mg Cyclobenzaprine HCl (Flexeril Tab*) 5 mg PO TID PRN PRN Reason: PAIN Sodium Chloride (Ns 0.9% 1000 Ml) 1,000 mls @ 75 mls/hr IV PER RATE [facility] Last Admin: 12/04/18 13:26 Dose: 75 mls/hr Montelukast Sodium (Singulair Tab*) 10 mg PO QAM [facility] Last Admin: 12/05/18 09:14 Dose: 10 mg Nortriptyline HCl (Pamelor Cap*) 10 mg PO BEDTIME [facility] Last Admin: 12/04/18 22:00 Dose: 10 mg Ticagrelor (Brilinta (Nf)) 60 mg PO BID [facility] Last Admin: 12/05/18 09:14 Dose: 60 mg Vital Signs 12/04/18 12/04/18 12/04/18 15:26 19:37 20:00 Temperature 97.4 F 97.4 F Pulse Rate 74 72 Respiratory 18 18 Rate Blood Pressure 131/63 140/60 (mmHg) O2 Sat by Pulse 97 97 97 Oximetry 12/04/18 12/05/18 12/05/18 23:46 03:30 07:35 Temperature 97.7 F 97.5 F 97.7 F Pulse Rate 67 72 73 Respiratory 18 14 17 Rate Blood Pressure 145/64 129/58 135/63 (mmHg) O2 Sat by Pulse 98 96 96 Oximetry 12/05/18 12/05/18 08:00 11:25 Temperature 97.7 F Pulse Rate 78 Respiratory 17 Rate Blood Pressure 134/65 (mmHg) O2 Sat by Pulse 96 96 Oximetry Intake and Output Last 24 Hours 12/03/18 12/04/18 12/05/18 12/06/18 06:59 06:59 06:59 06:59 Intake Total 617 5391 2196 Output Total 0 Balance 617 5391 2196 Weight 178 lb 3.2 oz 178 lb 3.2 oz Intake: IV Fluids 617 2691 1238 D5W NS (0.9%) 617 NS (0.9%) 1691 238 IVPB 238 NS (0.9%) 238 Oral 0 2700 720 Output: Urine 0 Other: # Voids 4 Oxygen Devices in Use Now: None Neurology Exam: General: chronic ill appearing female in no acute distress. HEENT: Normocephelic/atraumatic, sclera anicteric, mucous membranes moist Neck: Supple Chest: Clear to auscultation bilaterally Cardiovascular: Regular rate and rhythm without murmurs, rubs, gallops Extremities: No clubbing, cyanosis, or edema Neurological Findings: Awake, alert, and oriented to person, place, and time. Speech: spastic dysarthria Cranial Nerve: PERRL, EOM intact, VFF, no nystagmus, Motor: s/s throughout, proximal and distal extremities x4 tone/bulk normal Sensation: intact to LT/PP bilaterally upper and lower extremities Deep Tendon Reflex: 2+ symmetric in the upper/lower extremities, Babinski - mute on right. Mana's positive on the right. Finger to nose, rapid alternating movements intact without tremor, no dysdiadochokinesia Gait: wide based gait Result Diagrams: 12/04/18 05:58 12/04/18 05:58 Diagnostic Imaging: *[facility]* [place] [address] Fax #: [phone] Transthoracic Echocardiogram Patient: Domenic Benitez : 1950 Study Date: 12/04/2018 Age: 68 Gender: F HR: 66 bpm Height: 64 in /162.6 cm BSA: 1.86 m^2 Weight: 177.6 lb /80.7 kg BMI: 30.6 kg/m^2 *Bench Shear Operator: * Yvette Shipman [facility] *Referring Physician: * Katy Vincent *Reading Physician: Jann Joel MD Indications: TIA. History: Cerebrovascular accident. Transient ischemic attack. Asthma. Conclusions Summary: - Left ventricle: There is mild concentric hypertrophy. Systolic function is normal. The estimated ejection fraction is 60-65%. Left ventricular diastolic function parameters are indeterminate. - Atrial septum: A PFO is not demonstrated by color Doppler. Patient refused bubble study. - Mitral valve: There is trace regurgitation. Study data: Transthoracic echocardiogram. Procedure: Transthoracic echocardiography was performed. Image quality was fair. A bubble study was not performed, patient refused. Complete 2D, spectral Doppler, and color flow Doppler. Location: Bedside. Patient status: Inpatient. Patient room number: 449-2. No prior study is available for comparison. Rhythm: Normal sinus rhythm. Patient Name: DOMENIC BENITEZ Medical Record#: [id number] Ordering Physician: Dorian Loyola MD Acct.#: [id number] : 1950 Age: 68 Sex: F Location: EMERGENCY DEPARTMENT Exam Date: 12/03/181729 ADM Status: PRE ER Order Information: CT BRAIN WO Accession Number: [id number] CPT: 83958 INDICATION: Slurred speech. COMPARISON: There are no relevant prior studies available for comparison. TECHNIQUE: Contiguous axial sections of the brain were obtained from the skull base to the vertex without contrast. FINDINGS: There is no hemorrhagic focus, mass effect or midline shift. There are old bilateral basal ganglia infarcts. No new loss of dolan-white matter differentiation or cerebral edema. Periventricular hypoattenuation, without mass effect, is nonspecific. There is ex vacuo dilatation of the left frontal horn. The basal cisterns are patent. There is no abnormal extra-axial collection. No dense vessel is identified. The globes and orbits are symmetric. Paranasal sinuses and mastoid air cells are fairly well aerated. IMPRESSION: 1. No acute intracranial abnormality by CT. 2. Old bilateral basal ganglia infarcts. 3. Mild chronic small vessel slightly disease is likely. <Electronically signed by Joe Tomlinson MD in OV> 12/03/181745 Dictated By: Joe Tomlinson MD Dictated Date/Time: 12/03/181745 Transcribed Date/Time: 12/03/181739 Copy to: Assessment/Plan Ms. 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 Her symptoms lasted <24 hours. She did have similar presentation 11/12/2018 that lasted for a few days. She did not seek any medical attention at that time. Examination consistent of baseline spastic dysarthria without any evidence of new weakness or paresthesia. MRI brain showed a subacute right MCA vascular ischemic stroke (most likely from the stroke in early November). Her diagnosis during this hospitalization is likely TIA to the right middle cerebral artery distribution. She does not have headaches and has normal inflammatory markers; therefore, vasculitis is unlikely. She has no family history of stroke (CADASIL). We started her on aspirin 81 mg daily and continued Brilinta. Brilinta use is off label and it was started at [facility]. Continue atorvastatin 80 mg nightly. I advised her to follow-up with the vascular neurologist at [facility] to be evaluated and considered for intracranial stenting since she has failed multiple antiplatelet therapies. I informed her about the increased risk of bleeding with aspirin and Brilinta. Neurology will sign off. Follow-up at [facility] outpatient stroke clinic. I spoke to [facility] Neurology stroke clinic. I spoke to Diana from [facility] to schedule the patient an outpatient appointment. Diana stated that the school attendance secretary from [facility] will give the patient a call within the next 3 days to establish an outpatient follow-up with Vascular neurology.
[2018-12-05] MEDS ORDERED: Pneumococcal *Vac Polyvalent 0.5 ML VIAL IM ONE (17:00)
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
== END 2018-12-05 17:27 | disposition home or self-care (01) | DRG 69 ==
LOC: ED 17:16 → MEDTELE 19:29 → OBSVTOIN 12-04 16:00 → INTOOBSV 12-04 16:00
PROVIDERS: ADMIT Internal Medicine; ATTEND Internal Medicine
DX: G45.9 Transient cerebral ischemic attack, unspecified (principal); M79.7 Fibromyalgia; E78.5 Hyperlipidemia, unspecified; J45.909 Unspecified asthma, uncomplicated; R26.81 Unsteadiness on feet; Z66 Do not resuscitate; G62.9 Polyneuropathy, unspecified; M81.0 Age-related osteoporosis without current pathological fracture; Z96.653 Presence of artificial knee joint, bilateral; I69.328 Other speech and language deficits following cerebral infarction; Z79.02 Long term (current) use of antithrombotics/antiplatelets; Z79.899 Other long term (current) drug therapy; Z82.49 Family history of ischemic heart disease and other diseases of the circulatory system; Z87.891 Personal history of nicotine dependence; I69.322 Dysarthria following cerebral infarction; Z91.010 Allergy to peanuts; Z91.018 Allergy to other foods; Z83.3 Family history of diabetes mellitus; Z80.9 Family history of malignant neoplasm, unspecified
CPT/HCPCS: 36415; 70450; 70544; 70547; 70551; 71045; 80048; 80053; 80061; 82607; 83605; 84484; 85025; 85610; 85652; 85730; 86140; 90732; 93005; 93306; 99285; A9270-GY; G8978-GP-CI; G8979-GP-CI; G8980-GP-CI